=== PATIENT | female | born 1980 | race Hispanic/Latino ===

== ENCOUNTER 2019-10-14 18:42 | Emergency (ER) | payer BC ==
[2019-10-14] MEDS ORDERED: IBUPROFEN 200 MG TAB PO ONE (20:18)
[2019-10-14] MEDS ORDERED: IBUPROFEN 400 MG TAB ONE (20:18)
--- NOTE | 2019-10-15 00:45 | EDPHYS ---
Physician Documentation [facility] Name: Maur Khoury Age: 39 yrs Sex: Female : 1980 Arrival Date: 10/14/2019 Time: 18:43 Bed 25 Private MD: ED Physician Jp Mtz HPI: 10/14 20:29 This 39 yrs old Female presents to ER via Ambulatory with complaints of Flu snw Symptoms. 20:29 Onset: The symptoms/episode began/occurred suddenly, 3 day(s) ago, and became snw persistent. Associated signs and symptoms: Pertinent positives: congestion, cough, fever, headache, nasal discharge, shortness of breath, sore throat. The patient has not experienced similar symptoms in the past. The patient has not recently seen a physician. 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 - Coronavirus screen:: The patient has NOT traveled to [place] in the past 14 days. - Social history:: Smoking status: Patient uses street drugs, marijuana, Patient/guardian denies using. - Ebola Screening: : Patient negative for fever greater than or equal to 101.5 degrees Fahrenheit, and additional compatible Ebola Virus Disease symptoms Patient denies exposure to infectious person. ROS: 20:20 Eyes: Negative for injury, pain, redness, and discharge. snw 20:20 Neck: Negative for injury, pain, and swelling, Cardiovascular: Negative for chest pain, palpitations, and edema. 20:20 Abdomen/GI: Negative for abdominal pain, nausea, vomiting, diarrhea, and constipation, Back: Negative for injury and pain, : Negative for injury, bleeding, discharge, and swelling, MS/Extremity: Negative for injury and deformity, Skin: Negative for injury, rash, and discoloration, Neuro: Negative for headache, weakness, numbness, tingling, and seizure. 20:20 Constitutional: Positive for body aches, chills, fatigue, fever, malaise, poor PO intake. 20:20 ENT: Positive for sinus congestion, sore throat. 20:20 Respiratory: Positive for cough, with no reported sputum. Exam: 20:18 Head/Face: Normocephalic, atraumatic. Eyes: Pupils equal round and reactive to light, snw extra-ocular motions intact. Lids and lashes normal. Conjunctiva and sclera are non-icteric and not injected. Cornea within normal limits. Periorbital areas with no swelling, redness, or edema. ENT: Nares patent. No nasal discharge, no septal abnormalities noted. Tympanic membranes are normal and external auditory canals are clear. Oropharynx with no redness, swelling, or masses, exudates, or evidence of obstruction, uvula midline. Mucous membranes moist. Neck: Trachea midline, no thyromegaly or masses palpated, and no cervical lymphadenopathy. Supple, full range of motion without nuchal rigidity, or vertebral point tenderness. No Meningismus. Chest/axilla: Normal chest wall appearance and motion. Nontender with no deformity. No lesions are appreciated. 20:18 Abdomen/GI: Soft, non-tender, with normal bowel sounds. No distension or tympany. No guarding or rebound. No evidence of tenderness throughout. Back: No spinal tenderness. No costovertebral tenderness. Full range of motion. Skin: Warm, dry with normal turgor. Normal color with no rashes, no lesions, and no evidence of cellulitis. MS/ Extremity: Pulses equal, no cyanosis. Neurovascular intact. Full, normal range of motion. Neuro: Awake and alert, GCS 15, oriented to person, place, time, and situation. Cranial nerves II-XII grossly intact. Motor strength 5/5 in all extremities. Sensory grossly intact. Cerebellar exam normal. Normal gait. Psych: Awake, alert, with orientation to person, place and time. Behavior, mood, and affect are within normal limits. 20:18 Constitutional: The patient appears alert, awake, febrile, uncomfortable. 20:18 Cardiovascular: Rate: tachycardic, Rhythm: regular. 20:18 Respiratory: the patient does not display signs of respiratory distress, Respirations: shallow respirations, Breath sounds: bronchial sounds, that are moderate, bronchitic cough. Vital Signs: 19:15 BP 150 / 99; Pulse 112; Resp 20; Temp 100; Pulse Ox 99% ; Weight 78.02 kg; Height 4 ft. wh 11 in. (149.86 cm); 20:30 BP 144 / 68; Pulse 103; Resp 18; Temp 100.4; Pulse Ox 99% on R/A; wh 19:15 Body Mass Index 34.74 (78.02 kg, 149.86 cm) MDM: 19:08 Patient medically screened. snw 20:29 Data reviewed: vital signs, nurses notes. Data interpreted: Pulse oximetry: on room air snw is 99 %. Interpretation: normal. Counseling: I had a detailed discussion with the patient and/or guardian regarding: the historical points, exam findings, and any diagnostic results supporting the discharge/admit diagnosis, lab results, the need for outpatient follow up, to return to the emergency department if symptoms worsen or persist or if there are any questions or concerns that arise at home. Special discussion: I have referred the patient to see his PCP for further evaluation of high blood pressure. Based on the history and exam findings, there is no indication for further emergent testing or inpatient evaluation. I discussed with the patient/guardian the need to see the primary care provider for further evaluation of the symptoms. 10/14 19:28 Order name: Influenza Screen (A [facility] 10/14 19:28 Order name: Group A Streptococcus Rapid Sc [facility] 10/14 20:17 Order name: Urine Dipstick--Ancillary (enter results) [facility] 10/14 20:07 Order name: Urine Dipstick-Ancillary (obtain specimen); Complete Time: 20:12 snw 10/14 20:17 Order name: Urine --Ancillary (enter results) 2 Administered Medications: 20:13 Drug: Motrin 600 mg Route: PO; 20:48 Follow up: Response: No adverse reaction; Temperature is unchanged Disposition: 10/14/19 20:27 Discharged to Home. Impression: Influenza due to identified novel influenza A virus. - Condition is Stable. - Discharge Instructions: Fever, Adult, Hypertension, Influenza, Adult, Cough, Adult, Rehydration, Adult. - Prescriptions for Tylenol- Codeine #3 300-30 mg Oral Tablet - take 1 tablet by ORAL route every 6 hours As needed; 6 tablet. Tessalon Perles 100 mg Oral Capsule - take 1 capsule by ORAL route every 8 hours As needed; 15 capsule. promethazine 25 mg Oral Tablet - take 1 tablet by ORAL route every 6 hours As needed; 20 tablet. - Work release form, Medication Reconciliation Form, Thank You Letter, Antibiotic Education, Prescription Opioid Use form. - Follow up: Emergency Department; When: As needed; Reason: Worsening of condition. Follow up: Private Physician; When: 2 - 3 days; Reason: Recheck today's complaints, Continuance of care, Re-evaluation by your physician. - Problem is new. - Symptoms are unchanged. Addendum: 10/16/2019 19:05 Co-signature as Attending Physician, Jp Mtz MD. r n Signatures: Dispatcher [employer] EDMS Luana Butler, MANAGER BAR-C MANAGER BAR-Csnw Jp Mtz MD MD rn [facility]st[facility] Corrections: (The following items were deleted from the chart) 10/14 20:49 20:27 10/14/2019 20:27 Discharged to Home. Impression: Influenza due to identified novel influenza A virus. Condition is Stable. Forms are Medication Reconciliation Form, Thank You Letter, Antibiotic Education, Prescription Opioid Use. Follow up: Emergency Department; When: As needed; Reason: Worsening of condition. Follow up: Private Physician; When: 2 - 3 days; Reason: Recheck today's complaints, Continuance of care, Re-evaluation by your physician. Problem is new. Symptoms are unchanged. snw
--- NOTE | 2019-10-15 00:45 | ER ---
Nurse's Notes [facility] Name: Maru Khoury Age: 39 yrs Sex: Female : 1980 Arrival Date: 10/14/2019 Time: 18:43 Bed 25 Private MD: Diagnosis: Influenza due to identified novel influenza A virus Presentation: 10/14 19:12 Presenting complaint: Patient states: fever since Tuesday accompanied with cough and wh body aches. Transition of care: patient was not received from another setting of care. Onset of symptoms was October 14, 2019. Risk Assessment: Do you want to hurt yourself or someone else? Patient reports no desire to harm self or others. Initial Sepsis Screen: Does the patient meet any 2 criteria? HR > 90 bpm. Does the patient have a suspected source of infection? Yes: Other: fever. Care prior to arrival: None. 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 - Coronavirus screen:: The patient has NOT traveled to [place] in the past 14 days. - Social history:: Smoking status: Patient uses street drugs, marijuana, Patient/guardian denies using. - Ebola Screening: : Patient negative for fever greater than or equal to 101.5 degrees Fahrenheit, and additional compatible Ebola Virus Disease symptoms Patient denies exposure to infectious person. Screenin:15 Abuse screen: Denies threats or abuse. Denies injuries from another. Nutritional screening: No deficits noted. Tuberculosis screening: No symptoms or risk factors identified. Fall Risk None identified. Assessment: 19:15 General: Appears in no apparent distress. Behavior is calm, cooperative, appropriate for age. Pain: Complains of pain in sore throat and body aches. Neuro: Level of Consciousness is awake, alert, obeys commands, Oriented to person, place, time, situation, Appropriate for age. Cardiovascular: Heart tones S1 S2. Respiratory: Reports cough that is congestion Airway is patent Respiratory effort is even, unlabored, Respiratory pattern is regular, symmetrical, Breath sounds are clear bilaterally. GI: Abdomen is flat, non-distended. : No signs and/or symptoms were reported regarding the genitourinary system. EENT: Throat is pink. Derm: Skin is intact, is healthy with good turgor, Skin is pink, warm \T\ dry. normal. Musculoskeletal: Circulation, motion, and sensation intact. 20:30 Reassessment: Patient appears in no apparent distress at this time. No changes from previously documented assessment. Patient and/or family updated on plan of care and expected duration. Pain level reassessed. Patient is alert, oriented x 3, equal unlabored respirations, skin warm/dry/pink. Vital Signs: 19:15 BP 150 / 99; Pulse 112; Resp 20; Temp 100; Pulse Ox 99% ; Weight 78.02 kg; Height 4 ft. wh 11 in. (149.86 cm); 20:30 BP 144 / 68; Pulse 103; Resp 18; Temp 100.4; Pulse Ox 99% on R/A; wh 19:15 Body Mass Index 34.74 (78.02 kg, 149.86 cm) ED Course: 18:43 Patient arrived in ED. as 18:54 Luana Butler FNP-C is [facility]. snw 18:54 Jp Mtz MD is Attending Physician. snw 19:08 Sofia Gallagher is Primary Nurse. 19:13 Triage completed. wh 19:15 Arm band placed on right wrist. wh 19:15 Patient has correct armband on for positive identification. Bed in low position. Call light in reach. Side rails up X 1. Pulse ox on. NIBP on. 19:23 Flu and/or RSV swab sent to lab. Strep swab sent to lab. lt1 20:46 No provider procedures requiring assistance completed. Patient did not have IV access during this emergency room visit. Administered Medications: 20:13 Drug: Motrin 600 mg Route: PO; 20:48 Follow up: Response: No adverse reaction; Temperature is unchanged Outcome: 20:27 Discharge ordered by . snw 20:46 Discharged to home ambulatory. 20:46 Condition: stable 20:46 Discharge instructions given to patient, Instructed on discharge instructions, follow up and referral plans. no drinking with medication, no driving heavy equipment, medication usage, POC Demonstrated understanding of instructions, follow-up care, medications, POC Prescriptions given X 3. 20:49 Patient left the ED. Signatures: Luana Butler, JACK-Angel SUPERVISOR WORD PROCESSING-Csnw Georgette Acevedo, Sofia Snatiago, Aimee lt1 Corrections: (The following items were deleted from the chart) 19:16 19:12 Initial Sepsis Screen: Does the patient meet any 2 criteria? No. Patient's initial sepsis screen is negative. Does the patient have a suspected source of infection? Yes: Other: fever
[2019-10-15 02:00] VITALS: O2SAT 99
[2019-10-15 02:01] VITALS: BP 144/68; TEMP 100.4
[2019-10-15 04:01] LABS: Urine Blood 3+ (NEG); Urine Glucose NEGATIVE (NEG); Urine Protein TRACE (NEG); Urine Specific Gravity 1.025 (1.005-1.030)
== END 2019-10-14 20:49 | disposition home or self-care (01) ==
LOC: ER 18:42
DX: J10.1 Influenza due to other identified influenza virus with other respiratory manifestations (principal); I10 Essential (primary) hypertension
CPT/HCPCS: 81003; 81025; 87070; 87081; 87804; 99284

== ENCOUNTER 2019-11-19 00:41 | Emergency (ER) | payer BC ==
[2019-11-19 01:20] LABS: Absolute Lymphocytes (CBC) 3.3 K/uL (0.7-4.9); Basophils % 0.8 % (0-1.3); Hematocrit 39.8 % (36.0-45.0); Lymphocytes % 31.1 % (15.3-44.8); MPV 8.2 fL (7.6-11.3); RBC Red Blood Cell Count 4.37 M/uL (3.86-4.86)
[2019-11-19 02:19] LABS: Urine Blood NEGATIVE (NEG); Urine Glucose NEGATIVE (NEG); Urine Protein NEGATIVE (NEG); Urine Specific Gravity 1.025 (1.005-1.030)
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
[2019-11-19] MEDS ORDERED: IBUPROFEN 400 MG TAB ONE (03:35)
[2019-11-19] MEDS ORDERED: IBUPROFEN 200 MG TAB PO ONE (03:35)
[2019-11-19 04:02] VITALS: O2SAT 100
[2019-11-19 04:09] VITALS: BP 150/88; TEMP 98.5
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
== END 2019-11-19 03:47 | disposition home or self-care (01) ==
LOC: ER 00:41
DX: S16.1XXA Strain of muscle, fascia and tendon at neck level, initial encounter (principal); S20.229A Contusion of unspecified back wall of thorax, initial encounter; V49.40XA Driver injured in collision with unspecified motor vehicles in traffic accident, initial encounter; I10 Essential (primary) hypertension
CPT/HCPCS: 85025; 80048; 36415; 81025; 81003; 70450; 72125; 71260; 74177; 73590; 99284; Q9967

== ENCOUNTER 2024-04-12 09:23 | Emergency (ER) | payer BC ==
--- OUTSIDE RECORDS SUMMARY | 2024-04-12 09:27 | XMS REPORT | Continuity of Care Document ---
Author Name Unknown Address [address] [facility] [address] [place] [address] [facility] thconnect Address [address] [facility]. [address] [place] [address] Support Name Relationship Address Phone NO, CONTACT OT [address] [place] [address] NO, CONTACT OT [address] [place], [place] [address] [place], [place] [address] DENIZ MICHELLE SPOU [address] [place], [place] [id number] DENIZ MICHELLE Unknown Unavailable Care Team Providers Care Orthotic Finish Grinding Technician Name Role Phone QUENTIN SANTOS Primary Care Physicia n Unavailable Lidia Trevizo Attending Clinician UnavailMICKEY Montanez Attending Clinician Unavailable SINCERE MCCLENDON Attending Clinician Unavailable Todd Meyers Attending Clinician Unavailable KADEEM PIPER Attending Clinician Unavailable Therapy, Adc Covid Infusion Attending Clinician Unavailable Kadeem Piper MD Attending Clinician [phone] Juarez Lares DO Attending Clinician [phone] HAILEY LAIRD Attending Clinician Unavailable Lidia Trevizo Admitting Clinician UnavailTodd Wilson Admitting Clinician Unavailable Physician, No Primary or Family Admitting Clinic gerson Unavailable Payers Payer Name Policy Type Policy Number Effective Date Expirati on Date Source [facility] [id number] 2020 00:00:00 Problems Condition Name Condition Details Condition Category Status Onset Date Resolution Date Last Treatment Date Treating Clinician Comments Source No known active problems No known active problems Disease [facility] Allergies, Adverse Reactions, Alerts Allergy Name Allergy Type Status Severity Reaction(s) Onset Date Inactive Date Treating Clinician Comments Source Ibuprofe n Propensi ty to adverse reaction s Active Other - See comments 04-07 00:00: 00 Raises blood pressure [facility] Lisinopr il Propensi ty to adverse reaction s Active Cough 04-07 00:00: 00 [facility] IBUPROFE N DRUG INGREDI Active Other-Cmnt 04-07 00:00: 00 [facility] LISINOPR IL DRUG INGREDI Active COUGH 04-07 00:00: 00 [facility] ibuprofe n DA Active U ELEVATES BLOOD PRESSURE 04-01 00:00: 00 [facility] No Known Allergie s DA Active U 04-01 00:00: 00 [facility] No Known Allergie s DA Active U 04-01 00:00: 00 [facility] ibuprofe n DA Active U 04-01 00:00: 00 [facility] NO KNOWN ALLERGIE S Drug Class Active [facility] Social History Social Habit Start Date Stop Date Quantity Comments Source Exposure to SARS-CoV-2 (event) Yes [facility] Sex Assigned At 1980 00:00:00 1980 00:00:00 [facility] Smoking Status Start Date Stop Date Source Unknown if ever smoked [facility] Medications Ordered Medication Name Filled Medication Name Start Date Stop Date Current Medication? Ordering Clinician Indication Dosage Frequency Signature (SIG) Comments Components Source casirivimab -imdevimab 1200 mg in 60 mL NS MINI-BAG 04-09 21:30: 00 04-09 21:47 :00 No [id number] 1200mg [facility] casirivimab -imdevimab 1200 mg in 60 mL NS MINI-BAG 04-09 21:30: 00 04-09 21:47 :00 No [id number] 1200mg 1,200 mg, IV Infusion, ONCE, Administer over 20 Minutes, [facility] 04/09/21 at 1630, For 1 dose
Ad learning consultant as an IV infusion via pump or gravity through an intravenou s line containing a sterile, in-line or add-on 0.2-micron polyethers ulfone (PES) filter. Stable 36 hours refrigerat ed; 4 hours at room temperatur e.
[facility] casirivimab -imdevimab (REGEN-COV (EUA)) 1,200 mg in NaCl 0.9% (NS) 60 mL IV infusion 04-09 21:15: 00 04-09 20:22 :28 No [id number] 1200mg [facility] iopamidol (ISOVUE 370-500 mL) injection 100 mL 04-07 20:09: 00 04-07 20:10 :00 No [id number] 100mL 100 mL, Intravenou s, ONCE, 1 dose, Tue04/07/21 at 1530, Routine [facility] chlorphenir amine 4 mg tablet 04-07 00:00: 00 Yes [id number] 4mg Take 1 tablet by mouth every 6 (six) hours as needed for Allergies or Runny nose. [facility] calcium/mag nesium/zinc (CALCIUM-MA GNESUIUM-ZI NC) 333-133-5 mg Tab 04-07 00:00: 00 Yes [id number] 1{each} Take 1 Each by mouth daily. [facility] benzonatate 100 mg capsule 04-07 00:00: 00 Yes [id number] 100mg Take 1 capsule by mouth 3 (three) times daily as needed for Cough. [facility] ondansetron 4 mg disintegrat ing tablet 04-07 00:00: 00 Yes [id number] 4mg Take 1 tablet by mouth every 8 (eight) hours as needed for Nausea and Vomiting (N/V). [facility] vitamin D3-folic acid 125 mcg (5,000 unit)-1 mg Tab 04-07 00:00: 00 05-08 04:59 :00 No [id number] 1{tbl} Take 1 tablet by mouth daily for 30 days. [facility] Vital Signs Vital Name Observation Time Observation Value Comments S janna Systolic blood pressure 2021-04-09 22:32:00 143 mm[Hg] [facility] Diastolic blood pressure 2021-04-09 22:32:00 86 mm[Hg] [facility] Heart rate 2021-04-09 22:32:00 107 /min [facility] Body temperature 2021-04-09 22:32:00 36.72 Barbra [facility] Oxygen saturation in Arterial blood by Pulse oximetry 2021-04-09 22:32:00 96 /min [facility] Respiratory rate 2021-04-09 21:30:00 20 /min [facility] Body height 2021-04-09 20:09:00 147.3 cm [facility] Body weight 2021-04-09 20:09:00 78.472 kg [facility] BMI 2021-04-09 20:09:00 36.16 kg/m2 [facility] Systolic blood pressure 2021-04-07 21:00:00 138 mm[Hg] [facility] Diastolic blood pressure 2021-04-07 21:00:00 102 mm[Hg] [facility] Heart rate 2021-04-07 21:00:00 116 /min [facility] Respiratory rate 2021-04-07 21:00:00 23 /min [facility] Oxygen saturation in Arterial blood by Pulse oximetry 2021-04-07 21:00:00 100 /min [facility] Body temperature 2021-04-07 19:05:00 37.94 Barbra [facility] Body height 2021-04-07 19:05:00 147.3 cm [facility] Body weight 2021-04-07 19:05:00 78.926 kg [facility] BMI 2021-04-07 19:05:00 36.37 kg/m2 [facility] Procedures Procedure Date / Time Performed Performing Clinicia n Source [id number] 2021-05-21 00:00:00 NIDHI [facility] [id number] 2021-05-21 00:00:00 MARRO.02 [facility] [id number] 2021-05-21 00:00:00 MARRO.[address] [facility] [address] CHEST PULMONARY ANGIOGRAM 2021-04-07 20:17:19 [facility] 2021-04-07 20:05:00 Juarez Lares [facility] TROPONIN I 2021-04-07 20:02:[facility] COMP. METABOLIC PANEL ([id number]) 2021-04-07 20:02:00 Singer [facility] CBC WITH DIFF 2021-04-07 20:02:00 Singer [facility] N-TERMINAL PRO-BNP 2021-04-07 20:02:00 Singer [facility] NOTICE OF PRIVACY PRACTICES 2021-04-07 18:41:00 Doctor Unassigned, [place] [facility] CONSENT/REFUSAL FOR DIAGNOSIS AND TREATMENT 2021-04-07 18:40:33 Doctor Unassigned, [place] [facility] Encounters Start Date/Time End Date/Time Encounter Type Admission Type Attending [facility] Care Department Encounter ID Source 2023-11-03 12:00:00 2023-11-03 12:00:00 Outpatient Lidia Saunders [facility] [id number] [facility] 2022-10-21 12:00:00 2022-10-21 12:00:00 Outpatient Lidia Saunders [facility] [id number] [facility] 2022-05-05 14:40:00 2022-05-05 14:40:00 Outpatient MICKEY WATKINS [facility] [id number] [facility] 2022-05-01 16:40:00 2022-05-01 16:40:00 Outpatient SINCERE NEFF [facility] [id number] [facility] 2021-09-11 15:33:00 2021-09-11 15:33:00 Outpatient Todd Meyers [facility] [id number] [facility] 2021-05-21 14:45:00 2021-05-22 11:54:00 Inpatient Todd Glover [facility] DAYS [id number] [facility] 2021-04-28 00:00:00 2021-04-28 00:00:00 Outpatient [facility] PENFHETJOJ TYTI- [facility] 2021-04-09 15:00:00 2021-04-09 15:00:00 Outpatient KADEEM GARCIA [facility] [id number] [facility] 2021-04-09 13:03:47 2021-04-09 14:03:47 Nurse Visit Therapy, Adc Covid Kadeem Li A [facility] [id number] [facility] 2021-04-07 14:08:00 2021-04-07 16:44:00 Emergency Juarez Lares [facility] [id number] [facility] 2021-04-07 13:39:00 2021-04-07 13:39:00 Emergency X [facility] ERT [id number] [facility] 2021-04-01 08:00:00 2021-04-01 08:00:00 Outpatient Todd Glover [facility] DAYS [id number] [facility] 2021-03-31 00:00:00 2021-03-31 00:00:00 Outpatient HAILEY HUNTLEY [facility] [id number] [facility] Results Test Description Test Time Test Comments Results Result Co mments Source [id number] 20:47:00* Test Item Value Reference Range Interpretation Comme nts GLUBED (test code = GLUBED) 149 MG/DL 70-105 H UR HCG [id number] 09:05:00* Test Item Value Reference Range Interpretation Comme nts UR HCG QUAL (test code = HCGQLU) NEGATIVE NEGATIVE CT CHEST PULMONARY [id number] 21:15:341. No evidence of acute or chronic pulmonary embolism through the level ofthe subsegmental branches. 2. Multiple bilateral small areas of groundglass and consolidativeopacities consistent with the known diagnosis of COVID 19 pneumonia. Preliminary Report Dictated by Resident: Jay Valdez ?MD. Latha, have reviewed this study and agree with theabove report.PROCEDURE: CT CHEST WITH CONTRAST- CHEST PE PROTOCOL CLINICAL INDICATION: PE suspected, high pretest prob + covid ? COMPARISON: None TECHNIQUE: Volumetric helical CT angiogram was performed of the chest (lungapices to bases) with IV contrast. Images were reconstructed at 1.25 mmslice thickness. Corresponding axial, sagittal and coronal MIP images wereperformed. Axial MIPs and coronal and sagittal MPR images were generatedand reviewed.. FINDINGS: DEVICES: None HEART AND GREAT VESSELS: The opacification of the pulmonary vasculature isappropriate. No filling defects are seen through the level of the segmentalpulmonary arteries. The pulmonary trunk is normal in caliber. The thoracic aorta is normal in caliber. The heart is normal in size. No pericardial abnormalities are identified.The RV to LV is normal. MEDIASTINUM AND LOWER NECK: No central airway lesions are detected. Theesophagus is within normal limits. The included thyroid gland appearsnormal. LYMPH NODES: Mildly enlarged prevascular lymph node measuring 1 cm in shortaxis, likely reactive. Additional small lymph nodes in both sides of themediastinum a nd hilar regions. LUNGS AND PLEURA: Multiple bilateral mainly peripheral small areas ofgroundglass and consolidative opacities are seen. No suspicious lungmasses. No pleural abnormality detected. VISUALIZED UPPER ABDOMEN: The included solid organs and hollow viscusappear within normal limits. OSSEOUS STRUCTURES AND SOFT TISSUES: Thoracic dextrocurvature noted. Nofocal osseous lesions are detected. The soft tissues appear normal. [facility], Radiant Results Inft User - 04/07/2021 4:16 PM CDTFormattingof this note might be different from the original.PROCEDURE: CT CHEST WITH CONTRAST- CHEST PE PROTOCOLCLINICAL INDICATION: PE suspected, high pretest prob + covid COMPARISON: NoneTECHNIQUE: Volumetric helical CT angiogram was performed of the chest (lungapices to bases) with IV contrast. Images were reconstructed at 1.25 mmslice thickness. Corresponding axial, sagittal and coronal MIP images wereperformed. Axial MIPs and coronal and sagittal MPR images were generatedand reviewed..FINDINGS:DEVICE S: None HEART AND GREAT VESSELS: The opacification of the pulmonary vasculature isappropriate. No filling defects are seen through the level of the segmentalpulmonary arteries. The pulmonary trunk isnormal in caliber.The thoracic aorta is normal in caliber.The heart is normal in size. No pericardial abnormalities are identified.The RV to LV is normal. MEDIASTINUM AND LOWER NECK: No central airway lesions are detected. Theesophagus is within normal limits. The included thyroid gland appearsnormal.LYMPH NODES: Mildly enlarged prevascular lymph node measuring 1 cm in shortaxis, likely reactive.Additional small lymph nodes in both sides of themediastinum and hilar regions. LUNGS AND PLEURA: Multiple bilateral mainly peripheral small areas ofgroundglass and consolidative opacities are seen. No suspicious lungmasses. No pleural abnormality detected.VISUALIZED UPPER ABDOMEN: The included solid organs and hollow viscusappear within normal limits.OSSEOUS STRUCTURES AND SOFT TISSUES: Thoracicdextrocurvature noted. Nofocal osseous lesions are detected. The soft tissues appear normal.IMPRESSION1. No evidence of acute or chronic pulmonary embolism through the level ofthe subsegmental branches.2. Multiple bilateral small areas of groundglass and consolidativeopacities consistent with the known diagnosis of COVID 19 pneumonia.Preliminary Report Dictated by Resident: Jay Del Rio MD., have reviewed this study and agree with theabove report.[facility] [id number] 20:46:24 * Test Item Value Reference Range Interpretation Comme nts APPEARANCE (test code = 1731460484) Hazy Clear A COLOR (test code = 4231370035) Renea Yellow A PH (test code = 7754317890) 4.8-8.0 SP GRAVITY (test code = 4321636675) 1.003-1.030 GLU U QUAL (test code = 3759050666) Normal Normal BLOOD (test code = 0083137127) 1+ Negative A KETONES (test code = 0408273996) 80 mg/dL Negative A PROTEIN (test code = 2887-8) 100 mg/dL Negative A UROBILIN (test code = 8534703925) 4.0 mg/dL Normal A BILIRUBIN (test code = 3025240357) Negative Negative NITRITE (test code = 9662533341) Negative Negative LEUK SEAN (test code = 5642841546) Negative Negative RBC/HPF (test code = 4538105883) See_Comment [Automated [employer]] The system which generated this result transmitted reference range: 0 - 3 HPF. The reference range was not used to interpret this result as normal/abnormal. WBC/HPF (test code = 0337778535) See_Comment [Automated messa ge] The system which generated this result transmitted reference range: 0 - 5 HPF. The reference range was not used to interpret this result as normal/abnormal. BACTERIA (test code = 1996758608) Negative Negative MUCOUS (test code = 9081998988) Moderate Negative LPF A SQ EPITH (test code = 3591831023) HPF Lab Interpretation (test code = 00294-3) [id number] 20:41:50* Test Item Value Reference Range Interpretation Comments TROPONIN I (test code = 8636064708) 0.002 ng/mL See_Comment [Automated message] The system which generated this result transmitted reference range: <=0.034. The reference range was not used to interpret this result as normal/abnormal. JUANJO (test code = JUANJO) Reference (Normal) Range (defined by the 99th percentile reference limit): <= 0.034 ng/mL Note: Cardiac troponin begins to rise 3-4 hours after the onset of ischemia. Repeat in 4-6 hours if the sample was drawn within 3-4 hours of the onset of the symptom and found normal. Diagnosis of myocardial injury is made with acute changes in cTn concentrations with at least one serial sample above the 99th percentile upper reference limit (URL), taken together with the patient's clinical presentation. Biotin has been reported to cause a negative bias, interpret results relative to patient's use of biotin. Lab Interpretation (test code = 50697-4) Normal [facility]. METABOLIC PANEL (26126)2021-04-07 20:37:33* Test Item Value Reference Range Interpretation Comme nts NA (test code = 3279366729) 139 mmol/L 135-145 K (test code = 7767075467) 3.5 mmol/L 3.5-5.0 CL (test code = 8756941601) 104 mmol/L 98-108 CO2 TOTAL (test code = 2083690738) 23 mmol/L 23-31 AGAP (test code = 3617821199) 2-16 BUN (test code = 6006294952) 10 mg/dL 7-23 GLUCOSE (test code = 6840582532) 104 mg/dL 70-110 CREATININE (test code = 6624550326) 0.67 mg/dL 0.50-1.04 TOTAL BILI (test code = 9428620856) 0.4 mg/dL 0.1-1.1 CALCIUM (test code = 7013282408) 9.5 mg/dL 8.6-10.6 T PROTEIN (test code = 7871884148) 8.5 g/dL 6.3-8.2 H ALBUMIN (test code = 4206356759) 4.7 g/dL 3.5-5.0 ALK PHOS (test code = 9459648067) 72 U/L 34-122 ALTv (test code = 1742-6) 66 U/L 5-35 H AST(SGOT) (test code = 1364332213) 82 U/L 13-40 H eGFR (test code = 4658034953) mL/min/1.73m2 JUANJO (test code = JUANJO) Association of Glomerular Filtration Rate (GFR) and Staging of Kidney Disease* + --+ --+ ------+| GFR (mL/min/1.73 m2) ?| With Kidney Damage ?| ?Without Kidney Damage+ --------+ --------+ +| ?>90 ?| ?Stage one ?| ? Normal ?+ ---+ ---+ -------+| ?60-89 ?| ?Stage two ?| ? Decreased GFR ? + --+ --+ ------+| ?30-59 ?| ?Stage three ?| ? Stage three ? + --+ --+ ------+| ?15-29 ?| ?Stage four ? | ? Stage four ?+ ---+ ---+ -------+| ?<15 (or dialysis) ? ?| ?Stage five ? | ? Stage five ?+ ---+ ---+ -------+ *Each stage assumes the associated GFR level has been in effect for at least three months. ?Stages 1 to 5, with or without kidney disease, indicate chronic kidney disease. Notes: Determination of stages one and two (with eGFR >59mL/min/1.73 m2) requires estimation of kidney damage for at least three months as defined by structural or functional abnormalities of the kidney, manifested by either:Pathological abnormalities or Markers of kidney damage (including abnormalities in the composition of the blood or urine or abnormalities in imaging tests). Lab Interpretation (test code = 85268-9) [facility] [id number] 20:37:28* Test Item Value Reference Range Interpretation Comme nts NT-proBNP (test code = 0206506973) 25 pg/mL See_Comment [Automated message] The system which generated this result transmitted reference range: <=125. The reference range was not used to interpret this result as normal/abnormal. JUANJO (test code = JUANJO) Biotin has been reported to cause a negative bias, interpret results relative to patient's use of biotin. Lab Interpretation (test code = 24641-9) Normal [facility] [id number] 20:25:06* Test Item Value Reference Range Interpretation Comme nts WBC (test code = 6690-2) See_Comment [Automated [employer]] The system which generated this result transmitted reference range: 4.30 - 11.10 10*3/?L. The reference range was not used to interpret this result as normal/abnormal. RBC (test code = 789-8) See_Comment H [Automated [employer]] The system which generated this result transmitted reference range: 3.93 - 5.25 10*6/?L. The reference range was not used to interpret this result as normal/abnormal. HGB (test code = 718-7) 15.8 g/dL 11.6-15.0 H HCT (test code = 4544-3) 46.8 % 35.7-45.2 H MCV (test code = 787-2) 88.1 fL 80.6-95.5 MCH (test code = 785-6) 29.8 pg 25.9-32.8 MCHC (test code = 786-4) 33.8 g/dL 31.6-35.1 RDW-SD (test code = 30781-0) 40.9 fL 39.0-49.9 RDW-CV (test code = 788-0) 12.7 % 12.0-15.5 PLT (test code = 777-3) See_Comment [Automated messa ge] The system which generated this result transmitted reference range: 166 - 358 10*3/?L. The reference range was not used to interpret this result as normal/abnormal. MPV (test code = 92906-5) 10.0 fL 9.5-12.9 NRBC/100 WBC (test code = 2983530752) See_Comment [Automated [employer]] The system which generated this result transmitted reference range: 0.0 - 10.0 /100 WBCs. The reference range was not used to interpret this result as normal/abnormal. NRBC x10^3 (test code = 1914540142) <0.01 See_Comment [Automated messa ge] The system which generated this result transmitted reference range: 10*3/?L. The reference range was not used to interpret this result as normal/abnormal. GRAN MAT (NEUT) % (test code = 770-8) 73.2 % IMM GRAN % (test code = 5927887060) 0.20 % LYMPH % (test code = 736-9) 20.5 % MONO % (test code = 5905-5) 5.9 % EOS % (test code = 713-8) 0.0 % BASO % (test code = 706-2) 0.2 % GRAN MAT x10^3(ANC) (test code = 2962835171) 4.36 10*3/uL 1.88-7.09 IMM GRAN x10^3 (test code = 1913799157) <0.03 0.00-0.06 LYMPH x10^3 (test code = 731-0) 1.22 10*3/uL 1.32-3.29 L MONO x10^3 (test code = 742-7) 0.35 10*3/uL 0.33-0.92 EOS x10^3 (test code = 711-2) <0.03 0.03-0.39 L BASO x10^3 (test code = 704-7) <0.03 0.01-0.07 Lab Interpretation (test code = 41560-8) [facility] nCoV [id number] 14:43:00* Test Item Value Reference Range Interpretation Comme nts Coronavirus 2018 nCoV Bedside (test code = KSPDM43TFBZJ) Positive Negative A Critical Value reported toFirst Name: DIANE Last Name: R. (DR. MEYERS OFFICE)RESULTS READ BACK AND VERIFIEDby [id number], on 04/01/21, @ 1435. UR HCG [id number] 14:17:00* Test Item Value Reference Range Interpretation Comme nts UR HCG QUAL (test code = HCGQLU) NEGATIVE NEGATIVE Notes Date/Time Note Provider Source 2021-04-01 14:02:00 [id number] [address] PATIENT NAME: SYD MICHELLE ADMIT DATE: ACCOUNT NO: [id number] ROOM NO: AGE: 40 REPORT TYPE: eELECTROCARDIOGRAM SEX: F ADMITTING PHYSICIAN: Todd Meyers MD ATTENDING PHYSICIAN: Todd Meyers MD Order: [id number] Test Reason : SDS Test Date/Time Stamp: TueApr 01 2021 14:02:50 Blood Pressure : / mmHG Vent. Rate : 065 BPM Atrial Rate : 065 BPM P-R Int : 156 ms QRS Dur : 090 ms QT Int : 422 ms P-R-T Axes : 003 -05 029 degrees QTc Int : 438 ms Normal sinus rhythm Normal ECG No previous ECGs available Confirmed by DUNIA SHIELDS, EDELMIRA Laurent ([id number]) on 04/08/2021 8:25:42 AM Referred By: Todd Meyers Confirmed by:EDELMIRA STEVENS MD at 0825 PATIENT NAME: SYD MICHELLE [facility]"
[2024-04-12] MEDS ORDERED: ONDANSETRON 4 MG/2 ML VIAL ONE (10:00)
[2024-04-12] MEDS ORDERED: NA CHLORIDE 0.9% 1,000 ML ONE (10:01)
[2024-04-12] MEDS ORDERED: MORPHINE 4 MG/ML SYR ONE (10:01)
[2024-04-12 10:20] LABS: Absolute Lymphocytes (CBC) 0.9 K/uL (0.7-4.9); Absolute Monocytes 0.3 K/uL (0.1-1.3); Absolute Neutrophil 5.7 K/uL (1.8-8.0); Basophils % 0.6 % (0-1.3); Eosinophils % 0.3 % (0-4.4); Hematocrit 39.3 % (36.0-45.0); Hemoglobin 12.4 g/dL (12.0-15.0); Lymphocytes % 13.4 % (15.3-44.8); MCH 28.5 pg (27.0-35.0); MCHC 31.6 g/dL (32.0-36.0); MCV 90.2 fL (80-100); MPV 8.4 fL (7.6-11.3); Monocytes % 4.4 % (3.3-12.3); Neutrophils % 81.3 % (41.7-73.7); Platelets 324 thou/uL (152-406); RBC Red Blood Cell Count 4.35 M/uL (3.86-4.86); Red Cell Distribution Width 15.2 % (12.1-15.2)
[2024-04-12 10:23] LABS: Specific Gravity 1.029 (1.005-1.030); Sqamous Epithelial None Seen /HPF (None Seen); Urine Bacteria None Seen /HPF (<20); Urine Bilirubin NEGATIVE (Negative); Urine Blood 3+ (OVER) (Negative); Urine Clarity Extremely Turbid (Clear); Urine Color Dark-Brown (Yellow); Urine Culture Reflex Order NOT NEEDED; Urine Glucose NEGATIVE (Negative); Urine Ketones NEGATIVE (Negative); Urine Microscopic Reflex YN ORDER UMIC; Urine Mucus 4+ /HPF (None Seen); Urine Nitrite NEGATIVE (Negative); Urine Protein 2+ (Negative); Urine RBC >50 /HPF (None Seen); Urine Urobilinogen Normal (Normal); Urine WBC None Seen /HPF (<5); Urine pH 5.5 (5.0-7.0)
[2024-04-12 10:24] LABS: Specific Gravity 1.029 (1.005-1.030)
[2024-04-12 10:35] LABS: Albumin 3.6 g/dL (3.4-5.0); Albumin/Globulin Ratio 1.1 (1.1-1.8); Anion Gap 7.2 mEq/L (5.0-15.0); Bilirubin Total 0.4 mg/dL (0.2-1.0); Globulin 3.3 g/dL (2.3-3.5); Potassium 4.2 mEq/L (3.5-5.1); Protein, Total 6.9 g/dL (6.4-8.2)
--- NOTE | 2024-04-12 11:47 | RAD REPORT ---
EXAM DESCRIPTION: CT - Abdomen Pelvis W Contrast - 04/12/2024 10:43 am CLINICAL HISTORY: Abdominal pain COMPARISON: none. TECHNIQUE: Computed axial tomography of the abdomen pelvis was obtained. 100 cc Isovue-300 was admin istered intravenously. Oral contrast was not requested which limits evaluation of bowel and appendix All CT scans are performed using dose optimization technique as appropriate and may include automated exposure control or mA/KV adjustment according to patient size. FINDINGS: Prominent scoliosis. Cholecystectomy. The liver, spleen, pancreas, adrenal and kidneys appear unremarkable. Postsurgical changes involve stomach. 2 centimeter right ovarian cyst without significant free fluid. No followup imaging recommended Cervical canal measures 17 millimeters. Vaginal tampon present IMPRESSION: A 2 centimeter right ovarian cyst without significant free fluid Prominence of the cervical canal may be blood or mass. Endovaginal sonogram would be helpful for furt her evaluation
--- NOTE | 2024-04-12 11:58 | ER ---
Nurse's Notes [facility] Name: Maru Khoury Age: 43 yrs Sex: Female : 1980 Arrival Date: 04/12/2024 Time: 09:23 Bed 19 Private MD: Diagnosis: Other ovarian cysts Presentation: 04/12 09:47 Chief complaint: Patient states: lower abd pain since this morning , also vomited and iw feels dizzy and sweaty, also had diarrhea. Coronavirus screen: Client presents with at least one sign or symptom that may indicate coronavirus-19. Ebola Screen: No symptoms or risks identified at this time. Initial Sepsis Screen: Does the patient meet any 2 criteria? No. Patient's initial sepsis screen is negative. Does the patient have a suspected source of infection? No. Patient's initial sepsis screen is negative. Risk Assessment: Do you want to hurt yourself or someone else? Patient reports no desire to harm self or others. Onset of symptoms was April 12, 2024. 09:47 Method Of Arrival: Ambulatory iw 09:47 Acuity: SB 3 iw Triage Assessment: 09:20 General: Appears in no apparent distress. uncomfortable, Behavior is calm, cooperative, ar6 appropriate for age. Pain: Complains of pain in abdomen Pain currently is 10 out of 10 on a pain scale. Quality of pain is described as pressure, sharp, Pain began suddenly. EENT: Oral mucosa is moist. Neuro: Level of Consciousness is awake, alert, obeys commands, Oriented to person, place, time, situation. Cardiovascular: Reports None Denies chest pain. Respiratory: Airway is patent. GI: Reports lower abdominal pain, diarrhea, nausea, vomiting. : Urine is blood tinged. Derm: Skin is intact, is healthy with good turgor, Skin is dry, Skin is pink, warm \T\ dry. Derm: Skin Skin is Skin is pink, warm \T\ dry. 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 - Infectious Disease History:: Denies. - Social history:: Smoking status: Patient denies any tobacco usage or history of. - Family history:: not pertinent. Screenin:10 [facility] ED Fall Risk Assessment (Adult) History of falling in the last 3 months, ar6 including since admission No falls in past 3 months (0 pts) Confusion or Disorientation No (0 pts) Intoxicated or Sedated No (0 pts) Impaired Gait No (0 pts) Mobility Assist Device Used No (0 pt) Altered Elimination No (0 pt) Score/Fall Risk Level 0 - 2 = Low Risk Oriented to surroundings, Maintained a safe environment, Educated pt \T\ family on fall prevention, incl call for assistance when getting out of bed, Assessed \T\ reinforced patient's understanding of fall precautions, Hourly rounding (assess needs \T\ fall precautionary measures) done, Used gait belt as appropriate. Abuse screen: Denies threats or abuse. Denies injuries from another. Nutritional screening: No deficits noted. Tuberculosis screening: No symptoms or risk factors identified. Assessment: 10:10 General: Appears in no apparent distress. uncomfortable, Behavior is calm, cooperative, ar6 appropriate for age. Pain: Complains of pain in abdomen Pain does not radiate. Pain currently is 10 out of 10 on a pain scale. Quality of pain is described as crampy, pressure, sharp, Pain began suddenly. Neuro: Level of Consciousness is awake, alert, obeys commands, Oriented to person, place, time, situation. Cardiovascular: Capillary refill < 3 seconds. Respiratory: Airway is patent. GI: Abdomen is round non-distended, Bowel sounds present X 4 quads. Abd is soft Abdomen is tender to palpation in suprapubic area, right lower quadrant and left lower quadrant. : Urine is blood tinged, pt. reports she is on menses. EENT: Oral mucosa is moist. Derm: Skin is intact, is healthy with good turgor, Skin is dry, Skin is pink, warm \T\ dry. Musculoskeletal: No signs and/or symptoms reported regarding the musculoskeletal system. Vital Signs: 09:20 BP 127 / 77; Pulse 67; Resp 18; Temp 98.1; Pulse Ox 100% on R/A; ar6 09:47 BP 167 / 102; Pulse 72; Resp 18; Temp 98.1; Pulse Ox 100% on R/A; Weight 62.6 kg; iw Height 4 ft. 11 in. ; Pain 10/10; 10:10 BP 134 / 74; Pulse 72; Resp 18; Pulse Ox 99% on R/A; ar6 12:14 BP 121 / 79; Pulse 77; Resp 18; Pulse Ox 99% on R/A; ar6 09:47 Body Mass Index 27.87 (62.60 kg, 149.86 cm) iw 09:47 Pain Scale: Adult iw ED Course: 09:26 Patient arrived in ED. im 09:28 Shay Lee MD is Attending Physician. rt 09:37 Renea Thompson, RN is Primary Nurse. ar6 09:51 Triage completed. iw 09:53 Arm band placed on. iw 10:10 No apparent distress. Awaiting lab results, Awaiting radiology results. ar6 10:10 Patient has correct armband on for positive identification. Bed in low position. Call ar6 light in reach. Side rails up X 1. Provided Education on: medications. 10:10 No provider procedures requiring assistance completed. Inserted saline lock: 20 gauge ar6 in right antecubital area, using aseptic technique. Blood collected. Flushed with 10 mL NS. 10:16 CBC with Diff Sent. ar6 10:16 CMP Sent. ar6 10:16 Lipase Sent. ar6 10:16 Test, Urine Sent. ar6 10:16 Urinalysis w/ reflexes Sent. ar6 10:44 CT Abd/Pelvis - IV Contrast Only In Process Unspecified. EDMS 12:20 IV discontinued, intact, bleeding controlled, No redness/swelling at site. Pressure ar6 dressing applied. Administered Medications: 10:10 Drug: NS 0.9% IV 1000 ml IV at 1 bolus Per protocol; 1000 mL bolus Route: IV; Rate: 1 ar6 bolus; Site: right antecubital; 10:44 Follow up: Response: No adverse reaction; IV Status: Completed infusion; IV Intake: ar6 1000ml 11:29 Follow up: Response: No adverse reaction; IV Status: Completed infusion mb9 10:10 Drug: Ondansetron IVP 4 mg IVP once; over 2 minutes Route: IVP; Site: right antecubital;ar6 10:44 Follow up: Response: No adverse reaction ar6 11:29 Follow up: Response: No adverse reaction mb9 10:10 Drug: morphine IVP or IV 4 mg IVP once over 4 mins Route: IVP; Infused Over: 4 mins; ar6 Site: right antecubital; 10:44 Follow up: Response: No adverse reaction; Pain is decreased ar6 11:29 Follow up: Response: No adverse reaction mb9 Medication: 12:20 VIS not applicable for this client. ar6 Intake: 10:44 IV: 1000ml; Total: 1000ml. ar6 Outcome: 11:58 Discharge ordered by . rt 12:20 Discharged to home ambulatory, ar6 12:20 Condition: good 12:20 Discharge instructions given to patient, Instructed on discharge instructions, follow up and referral plans. medication usage, Demonstrated understanding of instructions, follow-up care, medications, Prescriptions given X 2, 12:21 Patient left the ED. ar6 Signatures: Dispatcher [employer] Josee Watson RN RN iw Wilkerson, Obdulia Nielson RN RN mb9 Shay Lee MD MD rt Mendoza, Itzel im Roberts, Amber, RN RN ar6
--- NOTE | 2024-04-12 11:58 | EDPHYS ---
Physician Documentation [facility] Name: Maru Khoury Age: 43 yrs Sex: Female : 1980 Arrival Date: 04/12/2024 Time: 09:23 Bed 19 Private MD: ED Physician Shay Lee HPI: 04/12 09:58 This 43 yrs old Female presents to ER via Ambulatory with complaints of rt Abdominal Pain, Doesn't Feel Right. 09:58 Patient presents to the ED with a suprapubic pain starting at about 2 AM. Patient rt states that she was well when she went to sleep. Denies radiation of symptoms, states it is sharp in nature. Reports nausea with vomiting. Denies other acute complaints at this time. Patient states that she is currently on her period. Denies other acute complaints, symptoms are moderate in severity, no other aggravating or alleviating factors.. [employer]: 09:53 LMP 04/09/2024, unknown iw Historical: - Allergies: 09:51 Lisinopril; iw 09:51 Ibuprofen; iw - PMHx: 09:51 Hypertension; iw - PSHx: 09:51 gastric sleeve; Cholecystectomy; section; iw - Immunization history:: Adult Immunizations not up to date. - Infectious Disease History:: Denies. - Social history:: Smoking status: Patient denies any tobacco usage or history of. - Family history:: not pertinent. ROS: 09:58 Constitutional: Negative for fever, chills, and weight loss, Cardiovascular: Negative rt for chest pain, palpitations, and edema, Respiratory: Negative for shortness of breath, cough, wheezing, and pleuritic chest pain, : negative for dysuria MS/Extremity: Negative for injury and deformity, Skin: Negative for injury, rash, and discoloration, Neuro: Negative for headache, weakness, numbness, tingling, and seizure, 09:58 Abdomen/GI: Positive for abdominal pain, nausea and vomiting, Exam: 10:00 Constitutional: This is a well developed, well nourished patient who is awake, alert, rt and in no acute distress. Head/Face: Normocephalic, atraumatic. Chest/axilla: Normal chest wall appearance and motion. Nontender with no deformity. No lesions are appreciated. Cardiovascular: Regular rate and rhythm with a normal S1 and S2. No gallops, murmurs, or rubs. Normal PMI, no JVD. No pulse deficits. Respiratory: Lungs have equal breath sounds bilaterally, clear to auscultation and percussion. No rales, rhonchi or wheezes noted. No increased work of breathing, no retractions or nasal flaring. Skin: Warm, dry with normal turgor. Normal color with no rashes, no lesions, and no evidence of cellulitis. MS/ Extremity: Pulses equal, no cyanosis. Neurovascular intact. Full, normal range of motion. Neuro: Awake and alert, GCS 15, oriented to person, place, time, and situation. Cranial nerves II-XII grossly intact. Motor strength 5/5 in all extremities. Sensory grossly intact. Cerebellar exam normal. Normal gait. 10:00 Abdomen/GI: Tenderness to the suprapubic region with no rebound, guarding, distention, Vital Signs: 09:20 BP 127 / 77; Pulse 67; Resp 18; Temp 98.1; Pulse Ox 100% on R/A; ar6 09:47 BP 167 / 102; Pulse 72; Resp 18; Temp 98.1; Pulse Ox 100% on R/A; Weight 62.6 kg; iw Height 4 ft. 11 in. ; Pain 10/10; 10:10 BP 134 / 74; Pulse 72; Resp 18; Pulse Ox 99% on R/A; ar6 12:14 BP 121 / 79; Pulse 77; Resp 18; Pulse Ox 99% on R/A; ar6 09:47 Body Mass Index 27.87 (62.60 kg, 149.86 cm) iw 09:47 Pain Scale: Adult iw MDM: 09:38 Patient medically screened. rt 12:00 Differential Diagnosis Ovarian cyst, UTI, kidney stone, pyelonephritis. Data reviewed: rt vital signs, nurses notes, lab test result(s), radiologic studies. I considered the following discharge prescriptions or medication management in the emergency department Medications were administered in the Emergency Department. See MAR. Independent interpretation of the following test(s) in the Emergency Department CT Scan: My interpretation is No ureteral stone seen on interpretation of CT scan images. Test considered but Not performed: Ultrasound Low suspicion for ovarian torsion given patient's clinical presentation, ultrasound indicated emergently, I did discuss findings of fluid in the endocervical canal with the patient as well as radiology recommendations for ultrasound, states that she wishes to follow-up with her [employer] for this.. Care significantly affected by the following chronic conditions: Hypertension. Counseling: I had a detailed discussion with the patient and/or guardian regarding the historical points, exam findings, and any diagnostic results supporting the discharge/admit diagnosis, lab results, radiology results, the need for outpatient follow up, to return to the emergency department if symptoms worsen or persist or if there are any questions or concerns that arise at home. Response to treatment: the patient's symptoms have markedly improved after treatment. 04/12 09:44 Order name: CBC with Diff; Complete Time: 10:38 rt 04/12 09:44 Order name: CMP; Complete Time: 10:38 rt 04/12 09:44 Order name: Lipase; Complete Time: 10:38 rt 04/12 09:44 Order name: Test, Urine; Complete Time: 10:38 rt 04/12 09:44 Order name: Urinalysis w/ reflexes; Complete Time: 10:38 rt 04/12 09:44 Order name: CT Abd/Pelvis - IV Contrast Only; Complete Time: 11:49 rt 04/12 09:44 Order name: IV Saline Lock; Complete Time: 10:16 rt 04/12 09:44 Order name: Labs collected and sent; Complete Time: 10:16 rt Administered Medications: 10:10 Drug: NS 0.9% IV 1000 ml IV at 1 bolus Per protocol; 1000 mL bolus Route: IV; Rate: 1 ar6 bolus; Site: right antecubital; :44 Follow up: Response: No adverse reaction; IV Status: Completed infusion; IV Intake: ar6 1000ml 11:29 Follow up: Response: No adverse reaction; IV Status: Completed infusion mb9 10:10 Drug: Ondansetron IVP 4 mg IVP once; over 2 minutes Route: IVP; Site: right antecubital;ar6 10:44 Follow up: Response: No adverse reaction ar6 11:29 Follow up: Response: No adverse reaction mb9 10:10 Drug: morphine IVP or IV 4 mg IVP once over 4 mins Route: IVP; Infused Over: 4 mins; ar6 Site: right antecubital; :44 Follow up: Response: No adverse reaction; Pain is decreased ar6 11:29 Follow up: Response: No adverse reaction mb9 Disposition Summary: 04/12/24 11:58 Discharge Ordered Notes: Location: Home rt Problem: new rt Symptoms: have improved rt Condition: Stable rt Diagnosis - Other ovarian cysts rt Followup: rt - With: Private Physician - When: 2 - 3 days - Reason: Discharge Instructions: - Discharge Summary Sheet rt - Ovarian Cyst rt Forms: - Medication Reconciliation Form rt - Antibiotic Education rt - Prescription Opioid Use rt - Patient Portal Instructions rt - Leadership Thank You Letter rt - Work release form ar6 Prescriptions: - acetaminophen-codeine 300-30 mg Oral tablet - take 1 tablet ORAL route every 6 hours as needed for pain; 15 tablet; Refills: rt 0, Product Selection Permitted - ondansetron 4 mg Oral Tablet,disintegrating - take 1 tablet ORAL route every 6 hours as needed for nausea; 15 tablet; rt Refills: 0, Product Selection Permitted Signatures: Dispatcher [employer] Josee Watson RN RN iw Shay Lee MD MD rt Renea Thompson RN RN ar6 Obdulia Leon RN mb9 Corrections: (The following items were deleted from the chart) 09:45 09:44 CBC+H.LAB.BRZ ordered. EDMS EDMS 09:45 09:44 COMPREHENSIVE METABOLIC PANEL+C.LAB.BRZ ordered. EDMS EDMS 09:45 09:44 LIPASE+C.LAB.BRZ ordered. EDMS EDMS 09:45 09:44 Test, Urine+UC.LAB.BRZ ordered. EDMS EDMS 09:45 09:44 Urinalysis+U.LAB.BRZ ordered. EDMS EDMS
[2024-04-12 12:25] VITALS: TEMP 98.1
[2024-04-12 12:27] VITALS: O2SAT 99
[2024-04-12 12:28] VITALS: BP 121/79
== END 2024-04-12 12:21 | disposition home or self-care (01) ==
LOC: ER 09:23
DX: N83.299 Other ovarian cyst, unspecified side (principal); I10 Essential (primary) hypertension; Z98.84 Bariatric surgery status; Z88.8 Allergy status to other drugs, medicaments and biological substances
CPT/HCPCS: 96361; 85025; 81001; 36415; 81025; 83690; 80053; 74177; 96375; 96374; 99284; Q9967; J2405; J7030

== ENCOUNTER 2024-06-25 16:20 | Emergency (ER) | payer BC ==
--- OUTSIDE RECORDS SUMMARY | 2024-06-25 16:26 | XMS REPORT | Continuity of Care Document ---
Author Name Unknown Address [address] [facility] [address] [place] [address] [facility] [address] [facility] [address] [place] [address] Support Name Relationship Address Phone NO, CONTACT OT [address] [place] [address] NO, CONTACT OT [address] [place] [address] [address] MICHELLE [address] [place] [address] L, [place] [address] DENIZ MICHELLE SPOU [address] [place] [address] DENIZ MICHELLE Unknown Unavailable Care Team Providers Care Scarf Gluer Name Role Phone QUENTIN SANTOS Primary Care Physicia n Unavailable Lidia Trevizo Attending Clinician UnavailMICKEY Montanez Attending Clinician Unavailable SINCERE MCCLENDON Attending Clinician Unavailable Todd Meyers Attending Clinician Unavailable KADEEM PIPER Attending Clinician Unavailable Therapy, [facility] Attending Clinician Unavailable Kadeem Piper MD Attending Clinician [phone] Juarez Lares DO Attending Clinician [phone] HAILEY LAIRD Attending Clinician Unavailable Lidia Trevizo Admitting Clinician UnavailTodd Wilson Admitting Clinician Unavailable Physician, No Primary or Family Admitting Clinic gerson Unavailable Payers Payer Name Policy Type Policy Number Effective Date Expirati on Date Source [facility] [id number] 2020 00:00:00 Problems Condition Name Condition Details Condition Category Status Onset Date Resolution Date Last Treatment Date Treating Clinician Comments Source No known active problems No known active problems Disease Univers [facility] Allergies, Adverse Reactions, Alerts Allergy Name Allergy Type Status Severity Reaction(s) Onset Date Inactive Date Treating Clinician Comments Source Ibuprofe n Propensi ty to adverse reaction s Active Other - See comments 04-07 00:00: 00 Raises blood pressure [facility] Lisinopr il Propensi ty to adverse reaction s Active Cough 04-07 00:00: 00 [facility] IBUPROFE N DRUG INGREDI Active Other-Cmnt 04-07 00:00: 00 [facility] LISINOPR IL DRUG INGREDI Active COUGH 04-07 00:00: 00 [facility] ibuprofe n DA Active U ELEVATES BLOOD PRESSURE 04-01 00:00: 00 [facility] No Known Allergie s DA Active U 8 00:00: 00 [facility] No Known Allergie s DA Active U 8 00:00: 00 [facility] ibuprofe n DA Active U 04-01 00:00: 00 [facility] NO KNOWN ALLERGIE S Drug Class Active [facility] Social History Social Habit Start Date Stop Date Quantity Comments Source Exposure to SARS-CoV-2 (event) Yes [facility] Sex Assigned At 1980 00:00:00 1980 00:00:00 [facility] Smoking Status Start Date Stop Date Source Unknown if ever smoked [facility] Medications Ordered Medication Name Filled Medication Name Start Date Stop Date Current Medication? Ordering Clinician Indication Dosage Frequency Signature (SIG) Comments Components Source casirivimab -imdevimab 1200 mg in 60 mL NS MINI-BAG 04-09 21:30: 00 04-09 21:47 :00 No [id number] 1200mg [facility] casirivimab -imdevimab 1200 mg in 60 mL NS MINI-BAG 04-09 21:30: 00 04-09 21:47 :00 No [id number] 1200mg 1,200 mg, IV Infusion, ONCE, Administer over 20 Minutes, Flori 04/09/21 at 1630, For 1 dose
Ad cloth reeler as an IV infusion via pump or gravity through an intravenou s line containing a sterile, in-line or add-on 0.2-micron polyethers ulfone (PES) filter. Stable 36 hours refrigerat ed; 4 hours at room temperatur e.
[facility] casirivimab -imdevimab (REGEN-COV (EUA)) 1,200 mg in NaCl 0.9% (NS) 60 mL IV infusion 04-09 21:15: 00 04-09 20:22 :28 No [id number] 1200mg [facility] iopamidol (ISOVUE 370-500 mL) injection 100 mL 04-07 20:09: 00 04-07 20:10 :00 No [id number] 100mL 100 mL, Intravenou s, ONCE, 1 dose, [facility] 04/07/21 at 1530, Routine [facility] chlorphenir amine 4 mg tablet 04-07 00:00: 00 Yes [id number] 4mg Take 1 tablet by mouth every 6 (six) hours as needed for Allergies or Runny nose. [facility] calcium/mag nesium/zinc (CALCIUM-MA GNESUIUM-ZI NC) 333-133-5 mg Tab 04-07 00:00: 00 Yes [id number] 1{each} Take 1 Each by mouth daily. [facility] benzonatate 100 mg capsule 04-07 00:00: 00 Yes [id number] 100mg Take 1 capsule by mouth 3 (three) times daily as needed for Cough. [facility] ondansetron 4 mg disintegrat ing tablet 04-07 00:00: 00 Yes [id number] 4mg Take 1 tablet by mouth every 8 (eight) hours as needed for Nausea and Vomiting (N/V). [facility] vitamin D3-folic acid 125 mcg (5,000 unit)-1 mg Tab 04-07 00:00: 00 05-08 04:59 :00 No [id number] 1{tbl} Take 1 tablet by mouth daily for 30 days. [facility] Vital Signs Vital Name Observation Time Observation Value Mark saldivar Systolic blood pressure 2021-04-09 22:32:00 143 mm[Hg] [facility] Diastolic blood pressure 2021-04-09 22:32:00 86 mm[Hg] [facility] Heart rate 2021-04-09 22:32:00 107 /min Un[facility] Body temperature 2021-04-09 22:32:00 36.72 Barbra [facility] Oxygen saturation in Arterial blood by Pulse oximetry 2021-04-09 22:32:00 96 /min [facility] Respiratory rate 2021-04-09 21:30:00 20 /min [facility] Body height 2021-04-09 20:09:00 147.3 cm [facility] Body weight 2021-04-09 20:09:00 78.472 kg [facility] BMI 2021-04-09 20:09:00 36.16 kg/m2 [facility] Systolic blood pressure 2021-04-07 21:00:00 138 mm[Hg] [facility] Diastolic blood pressure 2021-04-07 21:00:00 102 mm[Hg] [facility] Heart rate 2021-04-07 21:00:00 116 /min [facility] Respiratory rate 2021-04-07 21:00:00 23 /min [facility] Oxygen saturation in Arterial blood by Pulse oximetry 2021-04-07 21:00:00 100 /min [facility] Body temperature 2021-04-07 19:05:00 37.94 Barbra [facility] Body height 2021-04-07 19:05:00 147.3 cm [facility] Body weight 2021-04-07 19:05:00 78.926 kg [facility] BMI 2021-04-07 19:05:00 36.37 kg/m2 [facility] Procedures Procedure Date / Time Performed Performing Clinicia n Source [id number] 2021-05-21 00:00:00 MARRO.02 [facility] [id number] 2021-05-21 00:00:00 MARRO.02 [facility] [id number] 2021-05-21 00:00:[address] MARRO[address] [facility] [address] CHEST PULMONARY ANGIOGRAM 2021-04-07 20:17:19 Singer [facility] URINALYSIS 2021-04-07 20:05:[address] [facility] TROPONIN I 2021-04-07 20:02:00 Singer [facility] COMP. METABOLIC PANEL ([id number]) 2021-04-07 20:02:00 Singer [facility] CBC WITH DIFF 2021-04-07 20:02:00 Singer [facility] N-TERMINAL PRO-BNP 2021-04-07 20:02:00 Singer [facility] NOTICE OF PRIVACY PRACTICES 2021-04-07 18:41:00 Doctor Unassigned, [place] [facility] CONSENT/REFUSAL FOR DIAGNOSIS AND TREATMENT 2021-04-07 18:40:33 Doctor Unassigned, [place] [facility] Encounters Start Date/Time End Date/Time Encounter Type Admission Type Attending [facility] Care Facility Care Department Encounter ID Source 2023-11-03 12:00:00 2023-11-03 12:00:00 Outpatient Lidia Saunders [facility] [id number] [facility] 2022-10-21 12:00:00 2022-10-21 12:00:00 Outpatient Lidia Saunders [facility] [id number] [facility] 2022-05-05 14:40:00 2022-05-05 14:40:00 Outpatient MICKEY WATKINS [facility] [id number] [facility] 2022-05-01 16:40:00 2022-05-01 16:40:00 Outpatient SINCERE NEFF [facility] [id number] [facility] 2021-09-11 15:33:00 2021-09-11 15:33:00 Outpatient Todd Meyers [facility] [id number] [facility] 2021-05-21 14:45:00 2021-05-22 11:54:00 Inpatient Todd Glover [facility] [id number] [facility] 2021-04-28 00:00:00 2021-04-28 00:00:00 Outpatient [facility] PENFHETJOJ TY- [facility] 2021-04-09 15:00:00 2021-04-09 15:00:00 Outpatient KADEEM GARCIA [facility] [id number] [facility] 2021-04-09 13:03:47 2021-04-09 14:03:47 Nurse Visit Therapy, Adc CovKadeem Boswell [facility] [id number] [facility] 2021-04-07 14:08:00 2021-04-07 16:44:00 Emergency LaresJuarez walters [facility] [id number] [facility] 2021-04-07 13:39:00 2021-04-07 13:39:00 Emergency X [facility] ERT [id number] [facility] 2021-04-01 08:00:00 2021-04-01 08:00:00 Outpatient Todd Glover [facility] [id number] [facility] 2021-03-31 00:00:00 2021-03-31 00:00:00 Outpatient HAILEY HUNTLEY [facility] [id number] [facility] Results Test Description Test Time Test Comments Results Result Co mments Source [id number] 20:47:00* Test Item Value Reference Range Interpretation Comme nts GLUBED (test code = GLUBED) 149 MG/DL 70-105 H UR HCG [id number] 09:05:00* Test Item Value Reference Range Interpretation Comme nts UR HCG QUAL (test code = HCGQLU) NEGATIVE NEGATIVE CT CHEST PULMONARY [id number] 21:15:341. No evidence of acute or chronic [...] reviewed this study and agree with theabove report.[facility] [id number] 20:46:24 * Test Item Value Reference Range Interpretation Comme nts APPEARANCE (test code = 2497526347) Hazy Clear A COLOR (test code = 5672274787) Renea Yellow A PH (test code = 8886859558) 4.8-8.0 SP GRAVITY (test code = 7230118184) 1.003-1.030 GLU U QUAL (test code = 0721093229) Normal Normal BLOOD (test code = 8918866772) 1+ Negative A KETONES (test code = 9668168377) 80 mg/dL Negative A PROTEIN (test code = 2887-8) 100 mg/dL Negative A UROBILIN (test code = 6446433014) 4.0 mg/dL Normal A BILIRUBIN (test code = 4297663790) Negative Negative NITRITE (test code = 6792679536) Negative Negative LEUK SEAN (test code = 9530405693) Negative Negative RBC/HPF (test code = 3278197743) See_Comment [Automated [employer]] The system which generated this result transmitted reference range: 0 - 3 HPF. The reference range was not used to interpret this result as normal/abnormal. WBC/HPF (test code = 4210177812) See_Comment [Automated [employer]] The system which generated this result transmitted reference range: 0 - 5 HPF. The reference range was not used to interpret this result as normal/abnormal. BACTERIA (test code = 9744453921) Negative Negative MUCOUS (test code = 9485378701) Moderate Negative LPF A SQ EPITH (test code = 3561370192) HPF Lab Interpretation (test code = 61411-4) [id number] 20:41:50* Test Item Value Reference Range Interpretation Comments TROPONIN I (test code = 0625319029) 0.002 ng/mL See_Comment [Automated message] The system [...] of biotin. Lab Interpretation (test code = 23777-3) Normal [facility] (93977)2021-04-07 20:37:33* Test Item Value Reference Range Interpretation Comme nts NA (test code = 8824460002) 139 mmol/L 135-145 K (test code = 8608395012) 3.5 mmol/L 3.5-5.0 CL (test code = 6171085046) 104 mmol/L 98-108 CO2 TOTAL (test code = 7339807020) 23 mmol/L 23-31 AGAP (test code = 4447743002) 2-16 BUN (test code = 5397258363) 10 mg/dL 7-23 GLUCOSE (test code = 9198213878) 104 mg/dL 70-110 CREATININE (test code = 4136707601) 0.67 mg/dL 0.50-1.04 TOTAL BILI (test code = 2492725677) 0.4 mg/dL 0.1-1.1 CALCIUM (test code = 8942890893) 9.5 mg/dL 8.6-10.6 T PROTEIN (test code = 2155500647) 8.5 g/dL 6.3-8.2 H ALBUMIN (test code = 3792611657) 4.7 g/dL 3.5-5.0 ALK PHOS (test code = 5852283821) 72 U/L 34-122 ALTv (test code = 1742-6) 66 U/L 5-35 H AST(SGOT) (test code = 5659436102) 82 U/L 13-40 H eGFR (test code = 9979094628) mL/min/1.73m2 JUANJO (test code = JUANJO) Association [...] imaging tests). Lab Interpretation (test code = 73230-4) [facility]normal [facility] [id number] 20:37:28* Test Item Value Reference Range Interpretation Comme nts NT-proBNP (test code = 6495396130) 25 pg/mL See_Comment [Automated message] The system which generated this result transmitted reference range: <=125. The reference range was not used to interpret this result as normal/abnormal. JUANJO (test code = JUANJO) Biotin has been reported to cause a negative bias, interpret results relative to patient's use of biotin. Lab Interpretation (test code = 99797-4) Normal [facility] WITH [id number] 20:25:06* Test Item Value Reference Range Interpretation Comme nts WBC (test code = 6690-2) See_Comment [Automated [employer]] The system which generated this result transmitted reference range: 4.30 - 11.10 10*3/?L. The reference range was not used to interpret this result as normal/abnormal. RBC (test code = 789-8) See_Comment H [Automated [employer]] The system which generated this result transmitted [...] 33.8 g/dL 31.6-35.1 RDW-SD (test code = 71604-1) 40.9 fL 39.0-49.9 RDW-CV (test code = 788-0) 12.7 % 12.0-15.5 PLT (test code = 777-3) See_Comment [Automated [employer] ge] The system which generated this result transmitted reference range: 166 - 358 10*3/?L. The reference range was not used to interpret this result as normal/abnormal. MPV (test code = 83879-3) 10.0 fL 9.5-12.9 NRBC/100 WBC (test code = 5271804405) See_Comment [Automated [employer] ssage] The system which generated this result transmitted reference range: 0.0 - 10.0 /100 WBCs. The reference range was not used to interpret this result as normal/abnormal. NRBC x10^3 (test code = 5032908022) <0.01 See_Comment [Automated [employer] ge] The system which generated this result transmitted reference range: 10*3/?L. The reference range was not used to interpret this result as normal/abnormal. GRAN MAT (NEUT) % (test code = 770-8) 73.2 % IMM GRAN % (test code = 5683371846) 0.20 % LYMPH % (test code = 736-9) 20.5 % MONO % (test code = 5905-5) 5.9 % EOS % (test code = 713-8) 0.0 % BASO % (test code = 706-2) 0.2 % GRAN MAT x10^3(ANC) (test code = 2607457275) 4.36 10*3/uL 1.88-7.09 IMM GRAN x10^3 (test code = 1318811969) <0.03 0.00-0.06 LYMPH x10^3 (test code = 731-0) 1.22 10*3/uL 1.32-3.29 L MONO x10^3 (test code = 742-7) 0.35 10*3/uL 0.33-0.92 EOS x10^3 (test code = 711-2) <0.03 0.03-0.39 L BASO x10^3 (test code = 704-7) <0.03 0.01-0.07 Lab Interpretation (test code = 99302-1) Abnormal [facility] nCoV [id number] 14:43:00* Test Item Value Reference Range Interpretation Comme nts Coronavirus 2019 nCoV Bedside (test code = HGHYD33ZZWWG) Positive Negative A Critical Value reported toFirst Name: DIANE Last Name: Jamal. (DR. MEYERS OFFICE)RESULTS READ BACK AND VERIFIEDby [id number], on 04/01/21, @ 1435. UR HCG [id number] 14:17:00* Test Item Value Reference Range Interpretation Comme nts UR HCG QUAL (test code = HCGQLU) NEGATIVE NEGATIVE Notes Date/Time Note Provider Source 2021-04-01 14:02:00 [id number] [place] [address] PATIENT NAME: SYD MICHELLE ADMIT DATE: ACCOUNT NO: [id number] ROOM NO: AGE: 40 REPORT TYPE: eELECTROCARDIOGRAM SEX: F ADMITTING PHYSICIAN: Todd Meyers MD ATTENDING PHYSICIAN: Todd Meyers MD Order: [id number] Test Reason : SDS Test Date/Time Stamp: [...] ECG No previous ECGs available Confirmed by EDELMIRA STEVENS MD ([id number]) on 04/08/2021 8:25:42 AM Referred By: Todd Meyers Confirmed by:EDELMIRA STEVENS MD at 0825 PATIENT NAME: SYD MICHELLE [facility]"
[2024-06-25 18:05] LABS: Specific Gravity 1.025 (1.005-1.030)
[2024-06-25 18:06] LABS: Specific Gravity 1.025 (1.005-1.030); Sqamous Epithelial <5 /HPF (None Seen); Urine Bacteria None Seen /HPF (<20); Urine Bilirubin NEGATIVE (Negative); Urine Blood Trace (Negative); Urine Clarity Turbid (Clear); Urine Color Light-Yellow (Yellow); Urine Culture Reflex Order NOT NEEDED; Urine Glucose NEGATIVE (Negative); Urine Ketones NEGATIVE (Negative); Urine Microscopic Reflex YN ORDER UMIC; Urine Nitrite NEGATIVE (Negative); Urine Protein NEGATIVE (Negative); Urine RBC <5 /HPF (None Seen); Urine Urobilinogen 1+ (Normal); Urine WBC <5 /HPF (<5)
[2024-06-25 19:08] LABS: Absolute Basophils 0.1 K/uL (0-0.5); Absolute Eosinophils 0.1 K/uL (0-0.5); Absolute Lymphocytes (CBC) 2.7 K/uL (0.7-4.9); Absolute Monocytes 0.5 K/uL (0.1-1.3); Absolute Neutrophil 3.1 K/uL (1.8-8.0); Basophils % 1.2 % (0-1.3); Eosinophils % 1.4 % (0-4.4); Hemoglobin 12.3 g/dL (12.0-15.0); Lymphocytes % 42.3 % (15.3-44.8); MCHC 33.1 g/dL (32.0-36.0); MCV 90.4 fL (80-100); MPV 7.4 fL (7.6-11.3); Monocytes % 7.4 % (3.3-12.3); Neutrophils % 47.7 % (41.7-73.7); Platelets 333 thou/uL (152-406); RBC Red Blood Cell Count 4.09 M/uL (3.86-4.86); Red Cell Distribution Width 14.2 % (12.1-15.2)
[2024-06-25] MEDS ORDERED: NA CHLORIDE 0.9% 1,000 ML ONE (19:24)
[2024-06-25] MEDS ORDERED: MORPHINE 4 MG/ML SYR ONE (19:24)
[2024-06-25] MEDS ORDERED: CIPROFLOXACIN 400mg IV 400 MG/200 ML BAG IV ONE (19:29)
[2024-06-25] MEDS ORDERED: METRONIDAZOLE 500mg IVPB 500 MG/100 ML BAG IV ONE (19:29)
[2024-06-25] MEDS ORDERED: FAMOTIDINE 20 MG/2 ML VIAL IV ONE (19:29)
[2024-06-25 19:35] LABS: Albumin 3.5 g/dL (3.4-5.0); Anion Gap 6.1 mEq/L (5.0-15.0); Bilirubin Total 0.2 mg/dL (0.2-1.0); Globulin 3.6 g/dL (2.3-3.5); Potassium 4.1 mEq/L (3.5-5.1); Protein, Total 7.1 g/dL (6.4-8.2)
--- NOTE | 2024-06-25 20:10 | RAD REPORT ---
EXAMINATION: CT ABDOMEN AND PELVIS WITH CONTRAST CLINICAL INDICATION: Abdominal pain. GI bleed TECHNIQUE: CT abdomen and pelvis was performed, after the administration of 100 cc Isovue-300.. Sagit chadd and coronal reconstructions were obtained. One or more of the following dose reduction techniques were used: Automated exposure control, adjustment of the mA and kV according to patient si ze, and iterative reconstruction. Unless otherwise specified, incidental findings do not require dedicated imaging follow-up. [id number]. Oral contrast was not given which limits evaluation of bowel and appendix. COMPARISON: none FINDINGS: Liver, spleen, pancreas, adrenals and kidneys appear unremarkable Cholecystectomy Previously described right ovarian cyst has resolved.. No adnexal mass 3.5 cm soft tissue structure within the ascending colon. No evidence of diverticulitis. Post surgical changes involving the stomach : IMPRESSION: 3.5 cm soft tissue structure within the ascending colon is not visualized on the prior CT scan and mo st likely represents unusual appearing stool. A mass can have a similar appearance. Follow-up CT scan in a few weeks would be helpful for reevaluation.
--- NOTE | 2024-06-25 20:14 | ER ---
Nurse's Notes [facility] Name: Maru Khoury Age: 43 yrs Sex: Female : 1980 Arrival Date: 06/25/2024 Time: 16:20 Bed 11 Private MD: Diagnosis: GI Bleed/ Gastrointestinal hemorrhage, unspecified-LOWER, STABLE;Abdominal pain, unspecified;Abnormal findings on diagnostic imaging of other abdominal regions, including retroperitoneum-3.5 CM SOFT TISSUE MASS IN THE ASCENDING COLON, MOST LIKELY STOOL Presentation: 06/25 16:46 Chief complaint: Patient states: 1 episode of rectal bleeding on Tuesday and 1 episode aa5 today. Pt reports intermittent lower abd pain. Pt denies nausea/vomiting. Coronavirus screen: At this time, the client does not indicate any symptoms associated with coronavirus-19. Ebola Screen: Patient denies travel to an Ebola-affected area in the 21 days before illness onset. Initial Sepsis Screen: Does the patient meet any 2 criteria? No. Patient's initial sepsis screen is negative. Does the patient have a suspected source of infection? No. Patient's initial sepsis screen is negative. Risk Assessment: Do you want to hurt yourself or someone else? Patient reports no desire to harm self or others. Onset of symptoms was June 22, 2024. 16:46 Acuity: SB 3 aa5 16:46 Method Of Arrival: Ambulatory aa5 Triage Assessment: 18:50 General: Appears in no apparent distress. Behavior is calm, appropriate for age. iw Historical: - Allergies: 16:47 Ibuprofen; aa5 16:47 Lisinopril; aa5 - PMHx: 16:47 Hypertension; aa5 - PSHx: 16:47 section; Cholecystectomy; gastric sleeve; aa5 Screenin:19 [facility] ED Fall Risk Assessment (Adult) History of falling in the last 3 months, iw including since admission Score/Fall Risk Level 0 - 2 = Low Risk Oriented to surroundings, Maintained a safe environment. [facility] ED Fall Risk Assessment (Adult) Confusion or Disorientation No (0 pts) Intoxicated or Sedated No (0 pts) Impaired Gait No (0 pts) Mobility Assist Device Used No (0 pt) Altered Elimination No (0 pt). Abuse screen: Denies threats or abuse. Denies injuries from another. Nutritional screening: No deficits noted. Tuberculosis screening: No symptoms or risk factors identified. Assessment: 18:45 General: Appears in no apparent distress. Behavior is calm, cooperative. Pain: iw Complains of pain in left lower quadrant and right lower quadrant. Neuro: Level of Consciousness is awake, alert, obeys commands, Oriented to person, place, time, situation, Moves all extremities. Respiratory: Respiratory effort is even, unlabored, Respiratory pattern is regular. GI: Abdomen is non-distended. Derm: Skin is intact, is healthy with good turgor. Musculoskeletal: Range of motion: intact in all extremities. 21:20 Reassessment: Patient appears in no apparent distress at this time. Patient and/or iw family updated on plan of care and expected duration. Pain level reassessed. Vital Signs: 16:46 BP 132 / 94; Pulse 80; Resp 16 S; Temp 98.4(TE); Pulse Ox 100% on R/A; Weight 63.05 kg aa5 (R); Height 4 ft. 11 in. (R); 21:00 BP 124 / 67; Pulse 79; Resp 16; Pulse Ox 98% on R/A; iw 16:46 Body Mass Index 28.07 (63.05 kg, 149.86 cm) aa5 ED Course: 16:23 Patient arrived in ED. ra3 16:45 Arm band placed on. aa5 16:47 Triage completed. aa5 16:53 Garo Christiansen MD is Attending Physician. [facility] 17:05 Radiology exam delayed due to lab results not completed at this time. (BUN/Creatinine) nj IV insertion attempt and/or patient not having appropriate IV at this time. 17:05 Radiology exam delayed due to test not completed at this time. nj 18:30 Initial lab(s) drawn, by me, sent to lab. Inserted saline lock: 22 gauge in right iw antecubital area, using aseptic technique. Blood collected. Flushed with 10 mL NS. 18:33 Radiology exam delayed due to lab results not completed at this time. (BUN/Creatinine). nj 18:57 Josee Wells, RN is Primary Nurse. 19:02 Radiology exam delayed due to lab results not completed at this time. (BUN/Creatinine) ls3 IV insertion attempt and/or patient not having appropriate IV at this time. 19:56 CT Abd/Pelvis - IV Contrast Only In Process Unspecified. EDMS 20:12 Broderick, Zheng, MD is Referral Physician. renard 21:20 No provider procedures requiring assistance completed. IV discontinued, intact, iw bleeding controlled, No redness/swelling at site. Pressure dressing applied. Administered Medications: 19:45 Drug: Famotidine IVP 20 mg IVP once; dilute with 10 mL 0.9% NaCl; give over 2 minutes iw Route: IVP; Site: right antecubital; 19:45 Drug: morphine IVP or IV 4 mg IVP once over 4 mins Route: IVP; Infused Over: 4 mins; iw Site: right antecubital; 19:45 Drug: NS 0.9% IV 1000 ml IV at 1 bolus Per protocol; to be given as a bolus over 60 iw minutes Route: IV; Rate: 1 bolus; Site: right antecubital; 20:45 Follow up: IV Status: Completed infusion iw 19:45 Drug: metroNIDAZOLE IVPB 500 mg 100 ml IVPB at 200 ml/hr once over 30 mins Volume: 100 iw ml; Route: IVPB; Rate: 200 ml/hr; Infused Over: 30 mins; Site: right antecubital; 20:15 Follow up: IV Status: Completed infusion iw 20:16 Drug: Ciprofloxacin IVPB 400 mg 200 ml IVPB once over 60 mins Volume: 200 ml; Route: iw IVPB; Infused Over: 60 mins; Site: right antecubital; 21:16 Follow up: IV Status: Completed infusion iw Outcome: 20:13 Discharge ordered by . renard 21:20 Discharged to home ambulatory, with family, iw 21:20 Condition: good 21:20 Discharge instructions given to patient, family, Instructed on discharge instructions, follow up and referral plans. medication usage, Demonstrated understanding of instructions, follow-up care, medications, Prescriptions given X 4, 21:21 Patient left the ED. iw Signatures: Dispatcher [employer] ED[facility] Garo Christiansen MD MD cha Williams, Irene RN RN iw Trista Jules RN RN aa5 Harjeet Walters Lynzie ls3 Lisa Wellington ra3 Corrections: (The following items were deleted from the chart) 16:48 16:46 BP 132 / 94; Pulse 80bpm; Resp 16bpm; Spontaneous; Pulse Ox 100% RA; Temp 98.4F aa5 Temporal; aa5
--- NOTE | 2024-06-25 20:14 | EDPHYS ---
Physician Documentation [facility] Name: Maru Khoury Age: 43 yrs Sex: Female : 1980 Arrival Date: 06/25/2024 Time: 16:20 Bed 11 Private MD: VALENTE Physician Garo Christiansen HPI: 06/25 19:17 This 43 yrs old Female presents to ER via Ambulatory with complaints of Bloody renard Stools - x2days. 19:17 The patient presents to the emergency department with rectal bleeding, Onset: The renard symptoms/episode began/occurred 2 day(s) ago. Abdominal pain: located in the right lower quadrant and left lower quadrant. Modifying factors: The symptoms are alleviated by nothing, the symptoms are aggravated by nothing. Associated signs and symptoms: Pertinent positives:. Severity of symptoms: At their worst the symptoms were mild in the emergency department the symptoms are unchanged. The patient has not experienced similar symptoms in the past. Historical: - Allergies: 16:47 Ibuprofen; aa5 16:47 Lisinopril; aa5 - PMHx: 16:47 Hypertension; aa5 - PSHx: 16:47 section; Cholecystectomy; gastric sleeve; aa5 ROS: 19:19 Constitutional: Negative for fever, chills, and weight loss, Eyes: Negative for injury, renard pain, redness, and discharge, ENT: Negative for injury, pain, and discharge, Neck: Negative for injury, pain, and swelling, Cardiovascular: Negative for chest pain, palpitations, and edema, Respiratory: Negative for shortness of breath, cough, wheezing, and pleuritic chest pain, Back: Negative for injury and pain, : Negative for injury, bleeding, discharge, and swelling, MS/Extremity: Negative for injury and deformity, Skin: Negative for injury, rash, and discoloration, Neuro: Negative for headache, weakness, numbness, tingling, and seizure, Psych: Negative for depression, anxiety, suicide ideation, homicidal ideation, and hallucinations, Allergy/Immunology: Negative for hives, rash, and allergies, Endocrine: Negative for neck swelling, polydipsia, polyuria, polyphagia, and marked weight changes, Hematologic/Lymphatic: Negative for swollen nodes, abnormal bleeding, and unusual bruising, 19:19 Abdomen/GI: Positive for abdominal pain, rectal bleeding, of the right lower quadrant and left lower quadrant, Exam: 19:19 Constitutional: This is a well developed, well nourished patient who is awake, alert, renard and in no acute distress. Head/Face: Normocephalic, atraumatic. Eyes: Pupils equal round and reactive to light, extra-ocular motions intact. Lids and lashes normal. Conjunctiva and sclera are non-icteric and not injected. Cornea within normal limits. Periorbital areas with no swelling, redness, or edema. ENT: Nares patent. No nasal discharge, no septal abnormalities noted. Tympanic membranes are normal and external auditory canals are clear. Oropharynx with no redness, swelling, or masses, exudates, or evidence of obstruction, uvula midline. Mucous membranes moist. Neck: Trachea midline, no thyromegaly or masses palpated, and no cervical lymphadenopathy. Supple, full range of motion without nuchal rigidity, or vertebral point tenderness. No Meningismus. Chest/axilla: Normal chest wall appearance and motion. Nontender with no deformity. No lesions are appreciated. Cardiovascular: Regular rate and rhythm with a normal S1 and S2. No gallops, murmurs, or rubs. Normal PMI, no JVD. No pulse deficits. Respiratory: Lungs have equal breath sounds bilaterally, clear to auscultation and percussion. No rales, rhonchi or wheezes noted. No increased work of breathing, no retractions or nasal flaring. Back: No spinal tenderness. No costovertebral tenderness. Full range of motion. Skin: Warm, dry with normal turgor. Normal color with no rashes, no lesions, and no evidence of cellulitis. MS/ Extremity: Pulses equal, no cyanosis. Neurovascular intact. Full, normal range of motion. Neuro: Awake and alert, GCS 15, oriented to person, place, time, and situation. Cranial nerves II-XII grossly intact. Motor strength 5/5 in all extremities. Sensory grossly intact. Cerebellar exam normal. Normal gait. Psych: Awake, alert, with orientation to person, place and time. Behavior, mood, and affect are within normal limits. 19:19 Abdomen/GI: Inspection: abdomen appears normal, Bowel sounds: normal, Palpation: mild abdominal tenderness, in the right lower quadrant and left lower quadrant, Vital Signs: 16:46 BP 132 / 94; Pulse 80; Resp 16 S; Temp 98.4(TE); Pulse Ox 100% on R/A; Weight 63.05 kg aa5 (R); Height 4 ft. 11 in. (R); 21:00 BP 124 / 67; Pulse 79; Resp 16; Pulse Ox 98% on R/A; iw 16:46 Body Mass Index 28.07 (63.05 kg, 149.86 cm) aa5 MDM: 16:53 Medical Screening Exam initiated renard 19:21 Differential diagnosis: diverticulitis, hemorrhoids, diverticulitis, Irritable bowel renard syndrome, non-specific abd pain, pancreatitis. Data reviewed: vital signs, nurses notes, lab test result(s), radiologic studies, CT scan. Consideration of Admission/Observation Escalation of care including admission/observation considered. I considered the following discharge prescriptions or medication management in the emergency department Medications were administered in the Emergency Department. See MAR. Care significantly affected by the following chronic conditions: Hypertension, Obesity. 20:11 Counseling: I had a detailed discussion with the patient and/or guardian regarding the renard historical points, exam findings, and any diagnostic results supporting the discharge/admit diagnosis, the presence of at least one elevated blood pressure reading (>120/80) during this emergency department visit, lab results, radiology results, the need for outpatient follow up, for definitive care, a family practitioner, a art framing manager. ED course: NORMAL EGD / COLONOSCOPE LESS THAN 1 YEAR AGO. 06/25 16:55 Order name: CBC with Diff; Complete Time: 19:24 [facility] 06/25 16:55 Order name: CMP; Complete Time: 19:44 [facility] 06/25 16:55 Order name: Lipase; Complete Time: 19:44 [facility] 06/25 16:55 Order name: Test, Urine; Complete Time: 19:24 [facility] 06/25 16:55 Order name: Urinalysis w/ reflexes; Complete Time: 19:24 [facility] 06/25 16:55 Order name: CT Abd/Pelvis - IV Contrast Only; Complete Time: 20:10 [facility] 06/25 16:55 Order name: IV Saline Lock; Complete Time: 19:20 [facility] 06/25 16:55 Order name: Labs collected and sent; Complete Time: 19:20 [facility] Administered Medications: 19:45 Drug: Famotidine IVP 20 mg IVP once; dilute with 10 mL 0.9% NaCl; give over 2 minutes iw Route: IVP; Site: right antecubital; 19:45 Drug: morphine IVP or IV 4 mg IVP once over 4 mins Route: IVP; Infused Over: 4 mins; iw Site: right antecubital; 19:45 Drug: NS 0.9% IV 1000 ml IV at 1 bolus Per protocol; to be given as a bolus over 60 iw minutes Route: IV; Rate: 1 bolus; Site: right antecubital; 20:45 Follow up: IV Status: Completed infusion iw 19:45 Drug: metroNIDAZOLE IVPB 500 mg 100 ml IVPB at 200 ml/hr once over 30 mins Volume: 100 iw ml; Route: IVPB; Rate: 200 ml/hr; Infused Over: 30 mins; Site: right antecubital; 20:15 Follow up: IV Status: Completed infusion iw 20:16 Drug: Ciprofloxacin IVPB 400 mg 200 ml IVPB once over 60 mins Volume: 200 ml; Route: iw IVPB; Infused Over: 60 mins; Site: right antecubital; 21:16 Follow up: IV Status: Completed infusion iw Disposition Summary: 06/25/24 20:13 Discharge Ordered Notes: Location: Home renard Problem: new renard Symptoms: have improved renard Condition: Stable renard Diagnosis - GI Bleed/ Gastrointestinal hemorrhage, unspecified - LOWER, STABLE renard - Abdominal pain, unspecified renard - Abnormal findings on diagnostic imaging of other abdominal regions, including renard retroperitoneum - 3.5 CM SOFT TISSUE MASS IN THE ASCENDING COLON, MOST LIKELY STOOL Followup: renard - With: Private Physician - When: 2 - 3 days - Reason: Recheck today's complaints, Continuance of care, Re-evaluation by your physician Followup: renard - With: Zheng Broderick MD - When: 2 - 3 days - Reason: Recheck today's complaints, Re-evaluation by your physician Discharge Instructions: - Discharge Summary Sheet renard - Abdominal Pain, Adult renard - Gastrointestinal Bleeding renard - Rectal Bleeding renard - Incidental Abnormal Radiological Finding renard - Rectal Bleeding, [id number] renard Forms: - Medication Reconciliation Form renard - Antibiotic Education renard - Prescription Opioid Use renard - Patient Portal Instructions renard - Leadership Thank You Letter renard Prescriptions: - Colace 100 mg Oral Tablet - take 1 tablet ORAL route every 12 hours; 14 tablet; Refills: 0, Product renard Selection Permitted - Flagyl 500 mg Oral tablet - take 1 tablet ORAL route every 6 hours for 7 days; 28 tablet; Refills: 0, renard Product Selection Permitted - Cipro 500 mg Oral tablet - take 1 tablet ORAL route every 12 hours for 7 days; 14 tablet; Refills: 0, renard Product Selection Permitted - dicyclomine 20 mg Oral tablet - take 1 tablet ORAL route 4 times per day; 28 tablet; Refills: 0, Product renard Selection Permitted Signatures: Dispatcher [employer] EDGaro Cannon MD MD cha Williams, Irene RN RN Trista Green RN RN aa5 Corrections: (The following items were deleted from the chart) 16:55 16:55 CBC+H.LAB.BRZ ordered. EDMS EDMS 16:55 16:55 COMPREHENSIVE METABOLIC PANEL+C.LAB.BRZ ordered. EDMS EDMS 16:55 16:55 LIPASE+C.LAB.BRZ ordered. EDMS EDMS 16:55 16:55 Test, Urine+UC.LAB.BRZ ordered. EDMS EDMS 16:55 16:55 Urinalysis+U.LAB.BRZ ordered. EDMS EDMS 16:55 16:55 Abdomen Pelvis W Con+CT.RAD.BRZ ordered. EDMS EDMS
[2024-06-25 23:10] VITALS: BP 132/94; TEMP 98.4; O2SAT 100
== END 2024-06-25 21:21 | disposition home or self-care (01) ==
LOC: ER 16:20
DX: K92.2 Gastrointestinal hemorrhage, unspecified (principal); R10.32 Left lower quadrant pain; R93.5 Abnormal findings on diagnostic imaging of other abdominal regions, including retroperitoneum; I10 Essential (primary) hypertension
CPT/HCPCS: 85025; 81001; 36415; 81025; 83690; 80053; 74177; Q9967; J0744; J7030; 96365; 96367; 96375; 99284

== ENCOUNTER 2024-11-08 18:28 | Emergency (ER) | payer BC ==
--- OUTSIDE RECORDS SUMMARY | 2024-11-08 18:31 | XMS REPORT | Continuity of Care Document ---
Author Name Unknown Address [address] [facility] [address] [place] [address] [facility] Address [address] [facility] [address] [place] [address] Care Team Providers Care Electric Wirer Name Role Phone QUENTIN SANTOS Primary Care Juanpablo n Unavailable No, PCP Attending Clinician Unavailable Lidia Trevizo Attending Clinician UnavailMICKEY Montanez Attending Clinician Unavailable SINCERE MCCLENDON Attending Clinician Unavailable Todd Meyers Attending Clinician Unavailable KADEEM PIPER Attending Clinician Unavailable Therapy, [facility] Covid Infusion Attending Clinician Unavailable Kadeem Piper MD Attending Clinician [phone] Juarez Lares DO Attending Clinician [phone] HAILEY LAIRD Attending Clinician Unavailable Lidia Trevizo Admitting Clinician UnavailTodd Wilson Admitting Clinician Unavailable Physician, No Primary or Family Admitting Clinic gerson Unavailable Payers Payer Name Policy Type Policy Number Effective Date Expirati on Date Source [facility] [id number] 2020 00:00:00 Problems Condition Name Condition Details Condition Category Status Onset Date Resolution Date Last Treatment Date Treating Clinician Comments Source No known active problems No known active problems Disease Univers [facility] Allergies, Adverse Reactions, Alerts Allergy Name Allergy Type Status Severity Reaction(s) Onset Date Inactive Date Treating Clinician Comments Source Ibuprofe n Propensi ty to adverse reaction s Active Other - See comments 04-07 00:00: 00 Raises blood pressure [facility] Lisinopr il Propensi ty to adverse reaction s Active Cough 04-07 00:00: 00 [facility] IBUPROFE N DRUG INGREDI Active Other-Cmnt 04-07 00:00: 00 [facility] LISINOPR IL DRUG INGREDI Active COUGH 04-07 00:00: 00 [facility] No Known Allergie s DA Active U 8 00:00: 00 [facility] ibuprofe n DA Active U 8 00:00: 00 [facility] ibuprofe n DA Active U ELEVATES BLOOD PRESSURE 04-01 00:00: 00 [facility] No Known Allergie s DA Active U 8 00:00: 00 [facility] NO KNOWN ALLERGIE S Drug Class Active [facility] Social History Social Habit Start Date Stop Date Quantity Comments Source Exposure to SARS-CoV-2 (event) Yes [facility] Sex Assigned At 1980 00:00:00 1980 00:00:00 [facility] Smoking Status Start Date Stop Date Source Unknown if ever smoked [facility] Medications Ordered Medication Name Filled Medication Name Start Date Stop Date Current Medication? Ordering Clinician Indication Dosage Frequency Signature (SIG) Comments Components Source casirivimab -imdevimab 1200 mg in 60 mL NS MINI-BAG 04-09 21:30: 00 04-09 21:47 :00 No [id number] 1200mg [facility] casirivimab -imdevimab 1200 mg in 60 mL NS MINI-BAG 04-09 21:30: 00 04-09 21:47 :00 No [id number] 1200mg 1,200 mg, IV Infusion, ONCE, Administer over 20 Minutes, Flori 04/09/21 at 1630, For 1 dose
Ad rubber tubing backer as an IV infusion via pump or gravity through an intravenou s line containing a sterile, in-line or add-on 0.2-micron polyethers ulfone (PES) filter. Stable 36 hours refrigerat ed; 4 hours at room temperatur e.
[facility] casirivimab -imdevimab (REGEN-COV (EUA)) 1,200 mg in NaCl 0.9% (NS) 60 mL IV infusion 04-09 21:15: 00 04-09 20:22 :28 No [id number] 1200mg [facility] iopamidol (ISOVUE 370-500 mL) injection 100 mL 04-07 20:09: 00 04-07 20:10 :00 No [id number] 100mL 100 mL, Intravenou s, ONCE, 1 dose, 04/07/21 at 1530, Routine [facility] chlorphenir amine 4 mg tablet 04-07 00:00: 00 Yes [id number] 4mg Take 1 tablet by mouth every 6 (six) hours as needed for Allergies or Runny nose. [facility] calcium/mag nesium/zinc (CALCIUM-MA GNESUIUM-ZI NC) 333-133-5 mg Tab 04-07 00:00: 00 Yes [id number] 1{each} Take 1 Each by mouth daily. [facility] benzonatate 100 mg capsule 04-07 00:00: 00 Yes [id number] 100mg Take 1 capsule by mouth 3 (three) times daily as needed for Cough. [facility] ondansetron 4 mg disintegrat ing tablet 04-07 00:00: 00 Yes [id number] 4mg Take 1 tablet by mouth every 8 (eight) hours as needed for Nausea and Vomiting (N/V). [facility] vitamin D3-folic acid 125 mcg (5,000 unit)-1 mg Tab 04-07 00:00: 00 05-08 04:59 :00 No [id number] 1{tbl} Take 1 tablet by mouth daily for 30 days. [facility] Vital Signs Vital Name Observation Time Observation Value Comments Brandon saldivar Systolic blood pressure 2021-04-09 22:32:00 143 mm[Hg] [facility] Diastolic blood pressure 2021-04-09 22:32:00 86 mm[Hg] [facility] Heart rate 2021-04-09 22:32:00 107 /min [facility] Body temperature 2021-04-09 22:32:00 36.72 [facility] Oxygen saturation in Arterial blood by Pulse oximetry 2021-04-09 22:32:00 96 /min [facility] Respiratory rate 2021-04-09 21:30:00 20 /min [facility] Body height 2021-04-09 20:09:00 147.3 cm [facility] Body weight 2021-04-09 20:09:00 78.472 kg [facility] BMI 2021-04-09 20:09:00 36.16 kg/m2 [facility] Systolic blood pressure 2021-04-07 21:00:00 138 mm[Hg] [facility] Diastolic blood pressure 2021-04-07 21:00:00 102 mm[Hg] [facility] Heart rate 2021-04-07 21:00:00 116 /min [facility] Respiratory rate 2021-04-07 21:00:00 23 /min [facility] Oxygen saturation in Arterial blood by Pulse oximetry 2021-04-07 21:00:00 100 /min [facility] Body temperature 2021-04-07 19:05:00 37.94 [facility] Body height 2021-04-07 19:05:00 147.3 cm [facility] Body weight 2021-04-07 19:05:00 78.926 kg [facility] BMI 2021-04-07 19:05:00 36.37 kg/m2 [facility] Procedures Procedure Date / Time Performed Performing Clinicia n Source [id number] 2021-05-21 00:00:[address] [facility] [id number] 2021-05-21 00:00:[address] [facility] [id number] 2021-05-21 00:00:[address] [facility] CT CHEST PULMONARY ANGIOGRAM 2021-04-07 20:17:19 [facility] URINALYSIS 2021-04-07 20:05:00 [facility] TROPONIN I 2021-04-07 20:02:00 [facility] COMP. METABOLIC PANEL ([id number]) 2021-04-07 20:02:00 [facility] CBC WITH DIFF 2021-04-07 20:02:00 [facility] N-TERMINAL PRO-BNP 2021-04-07 20:02:00 [facility] NOTICE OF PRIVACY PRACTICES 2021-04-07 18:41:00 Doctor Unassigned, [place] [facility] CONSENT/REFUSAL FOR DIAGNOSIS AND TREATMENT 2021-04-07 18:40:33 Doctor Unassigned, [place] [facility] Encounters Start Date/Time End Date/Time Encounter Type Admission Type Attending [facility] Care Facility Care Department Encounter ID Source 2024-09-25 15:37:02 Outpatient No, PCP CLS [facility] [id number] [place] [facility] 2023-11-03 12:00:00 2023-11-03 12:00:00 Outpatient Lidia Saunders [facility] [id number] [facility] 2022-10-21 12:00:00 2022-10-21 12:00:00 Outpatient Lidia Saunders [facility] [id number] [facility] 2022-05-05 14:40:00 2022-05-05 14:40:00 Outpatient MICKEY WATKINS [facility] [id number] [facility] 2022-05-01 16:40:00 2022-05-01 16:40:00 Outpatient SINCERE NEFF [facility] [id number] [facility] 2021-09-11 15:33:00 2021-09-11 15:33:00 Outpatient Luigi Todd [facility] [id number] [facility] 2021-05-21 14:45:00 2021-05-22 11:54:00 Inpatient LEXII Meyers Todd [facility] [id number] [facility] 2021-04-28 00:00:00 2021-04-28 00:00:00 Outpatient [facility] TY[facility]- [address] [facility] 2021-04-09 15:00:00 2021-04-09 15:00:00 Outpatient KADEEM GARCIA [facility] [id number] [facility] 2021-04-09 13:03:47 2021-04-09 14:03:47 Nurse Visit Therapy, Adc Covid Infusion Kadeem Piper A [facility] [id number] [facility] 2021-04-07 14:08:00 2021-04-07 16:44:00 Emergency LaresJuarez [facility] [id number] [facility] 2021-04-07 13:39:00 2021-04-07 13:39:00 Emergency X [facility] ERT [id number] [facility] 2021-04-01 08:00:00 2021-04-01 08:00:00 Outpatient Todd Glover [facility] [id number] [facility] 2021-03-31 00:00:00 2021-03-31 00:00:00 Outpatient HAILEY HUNTLEY [facility] [id number] [facility] Results Test Description Test Time Test Comments Results Result Co mments Source [id number] 20:47:00* Test Item Value Reference Range Interpretation Comme nts GLUBED (test code = GLUBED) 149 MG/DL 70-105 H UR HCG [id number] 09:05:00* Test Item Value Reference Range Interpretation Comme nts UR HCG QUAL (test code = HCGQLU) NEGATIVE NEGATIVE CT CHEST PULMONARY [id number] 21:15:341. No evidence of acute or chronic pulmonary embolism through the level ofthe subsegmental branches. 2. Multiple bilateral small areas of groundglass and consolidativeopacities consistent with the known diagnosis of COVID 19 pneumonia. Preliminary Report Dictated by Resident: Jay Valdez MD., have reviewed this study and agree [...] reviewed this study and agree with theabove report.[facility] 20:46:24 * Test Item Value Reference Range Interpretation Comme nts APPEARANCE (test code = 2637992358) Hazy Clear A COLOR (test code = 1992408944) Renea Yellow A PH (test code = 2029373081) 4.8-8.0 SP GRAVITY (test code = 8935659519) 1.003-1.030 GLU U QUAL (test code = 0721020699) Normal Normal BLOOD (test code = 4655109779) 1+ Negative A KETONES (test code = 6352484557) 80 mg/dL Negative A PROTEIN (test code = 2887-8) 100 mg/dL Negative A UROBILIN (test code = 0137176398) 4.0 mg/dL Normal A BILIRUBIN (test code = 7534590231) Negative Negative NITRITE (test code = 4874370513) Negative Negative LEUK SEAN (test code = 3035530906) Negative Negative RBC/HPF (test code = 8840129458) See_Comment [Automated [employer]] The system which generated this result transmitted reference range: 0 - 3 HPF. The reference range was not used to interpret this result as normal/abnormal. WBC/HPF (test code = 1663655161) See_Comment [[employer]ated [employer] ge] The system which generated this result transmitted reference range: 0 - 5 HPF. The reference range was not used to interpret this result as normal/abnormal. BACTERIA (test code = 4337670745) Negative Negative MUCOUS (test code = 6705673165) Moderate Negative LPF A SQ EPITH (test code = 7897664100) HPF Lab Interpretation (test code = 06257-9) Abnormal [facility] [id number] 20:41:50* Test Item Value Reference Range Interpretation Comments TROPONIN I (test code = 9397039328) 0.002 ng/mL See_Comment [Automated message] The system [...] of biotin. Lab Interpretation (test code = 78046-5) [facility] (67250[facility]2021-04-07 20:37:33* Test Item Value Reference Range Interpretation Comme nts NA (test code = 6233693861) 139 mmol/L 135-145 K (test code = 6377827728) 3.5 mmol/L 3.5-5.0 CL (test code = 9095796906) 104 mmol/L 98-108 CO2 TOTAL (test code = 7981460846) 23 mmol/L 23-31 AGAP (test code = 2622403116) 2-16 BUN (test code = 6812074409) 10 mg/dL 7-23 GLUCOSE (test code = 3684364201) 104 mg/dL 70-110 CREATININE (test code = 6849891196) 0.67 mg/dL 0.50-1.04 TOTAL BILI (test code = 7597467465) 0.4 mg/dL 0.1-1.1 CALCIUM (test code = 5011795940) 9.5 mg/dL 8.6-10.6 T PROTEIN (test code = 1995130627) 8.5 g/dL 6.3-8.2 H ALBUMIN (test code = 8459905008) 4.7 g/dL 3.5-5.0 ALK PHOS (test code = 8633348152) 72 U/L 34-122 ALTv (test code = 1742-6) 66 U/L 5-35 H AST(SGOT) (test code = 1950514608) 82 U/L 13-40 H eGFR (test code = 6809221402) mL/min/1.73m2 JUANJO (test code = JUANJO) Association [...] imaging tests). Lab Interpretation (test code = 56126-3) [facility]normal [id number] 20:37:28* Test Item Value Reference Range Interpretation Comme nts NT-proBNP (test code = 4836268045) 25 pg/mL See_Comment [Automated message] The system which generated this result transmitted reference range: <=125. The reference range was not used to interpret this result as normal/abnormal. JUANJO (test code = JUANJO) Biotin has been reported to cause a negative bias, interpret results relative to patient's use of biotin. Lab Interpretation (test code = 17560-2) Normal [facility] WITH [id number] 20:25:06* Test Item Value Reference Range Interpretation Comme nts WBC (test code = 6690-2) See_Comment [Automated [employer]] The system which generated this result transmitted reference range: 4.30 - 11.10 10*3/?L. The reference range was not used to interpret this result as normal/abnormal. RBC (test code = 789-8) See_Comment H [Automated [employer]] The system which generated this result transmitted [...] 33.8 g/dL 31.6-35.1 RDW-SD (test code = 40745-8) 40.9 fL 39.0-49.9 RDW-CV (test code = 788-0) 12.7 % 12.0-15.5 PLT (test code = 777-3) See_Comment [[employer] ge] The system which generated this result transmitted reference range: 166 - 358 10*3/?L. The reference range was not used to interpret this result as normal/abnormal. MPV (test code = 27562-2) 10.0 fL 9.5-12.9 NRBC/100 WBC (test code = 4888314386) See_Comment [Automated [employer]] The system which generated this result transmitted reference range: 0.0 - 10.0 /100 WBCs. The reference range was not used to interpret this result as normal/abnormal. NRBC x10^3 (test code = 5868836467) <0.01 See_Comment [[employer] ge] The system which generated this result transmitted reference range: 10*3/?L. The reference range was not used to interpret this result as normal/abnormal. GRAN MAT (NEUT) % (test code = 770-8) 73.2 % IMM GRAN % (test code = 0059126101) 0.20 % LYMPH % (test code = 736-9) 20.5 % MONO % (test code = 5905-5) 5.9 % EOS % (test code = 713-8) 0.0 % BASO % (test code = 706-2) 0.2 % GRAN MAT x10^3(ANC) (test code = 3783458546) 4.36 10*3/uL 1.88-7.09 IMM GRAN x10^3 (test code = 1826829582) <0.03 0.00-0.06 LYMPH x10^3 (test code = 731-0) 1.22 10*3/uL 1.32-3.29 L MONO x10^3 (test code = 742-7) 0.35 10*3/uL 0.33-0.92 EOS x10^3 (test code = 711-2) <0.03 0.03-0.39 L BASO x10^3 (test code = 704-7) <0.03 0.01-0.07 Lab Interpretation (test code = 28664-8) [facility]normal [facility] [id number] 14:43:00* Test Item Value Reference Range Interpretation Comme nts Coronavirus 2019 nCoV Bedside (test code = FYEAT53LDTBQ) Positive Negative A Critical Value reported toFirst Name: DIANE Last Name: Klaudia (DR. MEYERS OFFICE)RESULTS READ BACK AND VERIFIEDby [id number], on 04/01/21, @ 1435. UR HCG [id number] 14:17:00* Test Item Value Reference Range Interpretation Comme nts UR HCG QUAL (test code = HCGQLU) NEGATIVE NEGATIVE Notes Date/Time Note Provider Source 2021-04-01 14:02:00 [id number] [place] [address] PATIENT NAME: SYD MICHELLE ADMIT DATE: ACCOUNT NO: [id number] ROOM NO: AGE: 40 REPORT TYPE: eELECTROCARDIOGRAM SEX: F ADMITTING PHYSICIAN: Todd Meyers MD ATTENDING PHYSICIAN: Todd Meyers MD Order: [id number] Test Reason : SDS Test Date/Time Stamp: [...] ECGs available Confirmed by EDELMIRA STEVENS MD ([id number]) on 04/08/2021 8:25:42 AM Referred By: Todd Meyers Confirmed by:EDELMIRA STEVENS MD at 0825 PATIENT NAME: SYD MICHELLE [facility]"
[2024-11-08 21:23] LABS: Absolute Lymphocytes (CBC) 0.5 K/uL (0.7-4.9); Absolute Monocytes 0.2 K/uL (0.1-1.3); Absolute Neutrophil 7.9 K/uL (1.8-8.0); Basophils % 0.4 % (0-1.3); Eosinophils % 0.1 % (0-4.4); Hematocrit 38.5 % (36.0-45.0); Hemoglobin 12.7 g/dL (12.0-15.0); Lymphocytes % 5.6 % (15.3-44.8); MCH 29.3 pg (27.0-35.0); MCHC 33.1 g/dL (32.0-36.0); MCV 88.6 fL (80-100); MPV 7.9 fL (7.6-11.3); Monocytes % 2.1 % (3.3-12.3); Neutrophils % 91.8 % (41.7-73.7); Platelets 319 thou/uL (152-406); RBC Red Blood Cell Count 4.34 M/uL (3.86-4.86); Red Cell Distribution Width 13.4 % (12.1-15.2)
[2024-11-08 21:38] LABS: Albumin 3.6 g/dL (3.4-5.0); Albumin/Globulin Ratio 0.9 (1.1-1.8); Anion Gap 5.8 mEq/L (5.0-15.0); Bilirubin Total 0.6 mg/dL (0.2-1.0); Globulin 3.9 g/dL (2.3-3.5); Potassium 3.8 mEq/L (3.5-5.1); Protein, Total 7.5 g/dL (6.4-8.2)
[2024-11-08] MEDS ORDERED: ONDANSETRON 4 MG/2 ML VIAL ONE (22:04)
[2024-11-08] MEDS ORDERED: MORPHINE 4 MG/ML SYR ONE (22:04)
[2024-11-08] MEDS ORDERED: FAMOTIDINE 20 MG/2 ML VIAL IV ONE (22:05)
[2024-11-08] MEDS ORDERED: NA CHLORIDE 0.9% 1,000 ML ONE (22:05)
[2024-11-08 22:07] LABS: Blood Morphology Comment NOT SEEN (NOT SEEN); Platelet Estimate ADEQ; White Blood Cell Scan OK (OK)
[2024-11-08 22:18] LABS: Specific Gravity > 1.030 (1.005-1.030)
[2024-11-08 22:23] LABS: Specific Gravity > 1.030 (1.005-1.030); Sqamous Epithelial 20-50 /HPF (None Seen); Urine Bacteria <20 /HPF (<20); Urine Bilirubin NEGATIVE (Negative); Urine Blood 1+ (Negative); Urine Clarity Extremely Turbid (Clear); Urine Color Yellow (Yellow); Urine Crystals Unidentified Few /HPF (None Seen); Urine Culture Reflex Order NOT NEEDED; Urine Glucose NEGATIVE (Negative); Urine Ketones 3+ (Negative); Urine Microscopic Reflex YN ORDER UMIC; Urine Mucus 4+ /HPF (None Seen); Urine Nitrite NEGATIVE (Negative); Urine Protein 1+ (Negative); Urine Urobilinogen Normal (Normal); Urine WBC Clump Occasional /HPF (None Seen); Urine Yeast (Budding) Occasional /HPF (None Seen); Urine pH 5.5 (5.0-7.0)
--- NOTE | 2024-11-09 00:34 | EDPHYS ---
Physician Documentation [facility] Name: Maru Khoury Age: 44 yrs Sex: Female : 1980 Arrival Date: 11/08/2024 Time: 18:28 Bed 10 Private MD: ED Physician Javi Butler HPI: 11/08 20:25 This 44 yrs old Female presents to ER via Ambulatory with complaints of cp Abdominal Pain, Vomiting/Diarrhea. 20:25 The patient presents with abdominal pain. cp 20:25 Onset: The symptoms/episode began/occurred today. The symptoms radiate to back. cp 20:25 Associated signs and symptoms: Pertinent positives: nausea, vomiting, and diarrhea, cp Pertinent negatives: chest pain, constipation, fever, vomiting blood. Severity of pain: in the emergency department the pain is unchanged despite home interventions. 20:25 Patient reports HX of gastric sleeve surgery. cp Historical: - PMHx: 19:41 Hypertension; br2 - PSHx: 19:41 section; Cholecystectomy; gastric sleeve; br2 - Immunization history:: Adult Immunizations up to date. - Infectious Disease History:: Denies. - Social history:: Smoking status: Patient denies any tobacco usage or history of. Patient uses alcohol, occasionally. street drugs, marijuana. ROS: 20:25 Constitutional: Positive for poor PO intake, Negative for body aches, chills, fever, cp 20:25 ENT: Negative for drainage from ear(s), ear pain, sore throat, difficulty swallowing, difficulty handling secretions, 20:25 Cardiovascular: Negative for chest pain, palpitations, 20:25 Respiratory: Negative for cough, shortness of breath, wheezing, 20:25 Abdomen/GI: Positive for abdominal pain, nausea, vomiting, and diarrhea, anorexia, Negative for constipation, hematemesis, black/tarry stool, rectal bleeding, 20:25 Back: Positive for radiated pain, 20:25 Neuro: Negative for altered mental status, 20:25 All other systems are negative, cp Exam: 20:30 Constitutional: The patient appears in no acute distress, alert, awake, cp non-diaphoretic, non-toxic, well developed, well nourished, uncomfortable, 20:30 Head/Face: Normocephalic, atraumatic. cp 20:30 Eyes: Periorbital structures: appear normal, Conjunctiva: normal, no exudate, no injection, Sclera: no appreciated abnormality, Lids and lashes: appear normal, bilaterally, 20:30 ENT: External ear(s): are unremarkable, Nose: is normal, Mouth: Lips: moist, Oral mucosa: moist, Posterior pharynx: Airway: no evidence of obstruction, patent, erythema, is not appreciated, 20:30 Chest/axilla: Inspection: normal, 20:30 Cardiovascular: Rate: normal, Rhythm: regular, Edema: is not appreciated, JVD: is not appreciated, 20:30 Respiratory: the patient does not display signs of respiratory distress, Respirations: normal, no use of accessory muscles, no retractions, labored breathing, is not present, Breath sounds: are clear throughout, no decreased breath sounds, no stridor, no wheezing, 20:30 Abdomen/GI: Inspection: abdomen appears normal, Bowel sounds: active, all quadrants, Palpation: soft, in all quadrants, moderate abdominal tenderness, in the epigastric area, right upper quadrant and left upper quadrant, rebound tenderness, is not appreciated, voluntary guarding, is elicited in the epigastric area, 20:30 Back: CVA tenderness, is absent, 20:30 Skin: no rash present. 20:30 Neuro: Orientation: to person, place \T\ time. Mentation: is normal, Motor: moves all fours, strength is normal, Sensation: no obvious gross deficits, Vital Signs: 19:39 BP 137 / 101; Pulse 77; Resp 18; Temp 97.9(TE); Pulse Ox 99% on R/A; Weight 62.14 kg; br2 Height 4 ft. 11 in. ; Pain 5/10; 19:39 Body Mass Index 27.67 (62.14 kg, 149.86 cm) br2 19:39 Pain Scale: Adult br2 MDM: 19:44 Medical Screening Exam initiated cp 21:00 Differential diagnosis: Nonspecific abd pain, gastritis, viral gastroenteritis, cp gastroenteritis. 11/09 00:32 Data reviewed: vital signs, nurses notes, lab test result(s), radiologic studies, CT cp scan. 00:32 I considered the following discharge prescriptions or medication management in the emergency department Medications were administered in the Emergency Department. See MAR. Care significantly affected by the following chronic conditions: Hypertension. Counseling: I had a detailed discussion with the patient and/or guardian regarding the historical points, exam findings, and any diagnostic results supporting the discharge/admit diagnosis, lab results, radiology results, to return to the emergency department if symptoms worsen or persist or if there are any questions or concerns that arise at home. Response to treatment: the patient's symptoms have mildly improved after treatment, nausea improved, abdominal pain improved. will discharge to home for continued monitoring, and as a result, I will discharge patient. Special discussion: Based on the patient's Hx, exam, and Dx evaluation, there is no indication for emergent surgery or inpatient Tx. It is understood by the patient/guardian that if the Sx's persist or worsen they need to return immediately for re-evaluation. 16:43 Data reviewed: vital signs, nurses notes. ED course: felt improved . sp4 16:45 Consideration of Admission/Observation Escalation of care including sp4 admission/observation considered. ED course: He has revealed mild enteritis. 11/08 20:23 Order name: CBC with Diff; Complete Time: 23:31 cp 11/08 23:35 Interpretation: Reviewed. cp 11/08 20: Order name: CMP; Complete Time: 21:50 cp 11/09 00:25 Interpretation: Normal except: CL 108; GLUC 107; GLOB 3.9; A/G 0.9. cp 11/08 20:23 Order name: Lipase; Complete Time: 21:50 cp 11/09 00:25 Interpretation: Reviewed. cp 11/08 20:23 Order name: Test, Urine; Complete Time: 23:31 cp 11/08 20:23 Order name: Urinalysis w/ reflexes; Complete Time: 23:31 cp 11/09 00:25 Interpretation: Normal except: [facility] Extremely Turbid; Urine SG > 1.030; UKET 3+; UBLD cp 1+; UPROT 1+; URBC 5-10; SQEPI 20-50; MUCUS 4+; UWBC Clump Occasional; BYST Occasional. 11/08 22:07 Order name: CBC Smear Scan; Complete Time: 23:31 EDMS 11/08 22:05 Order name: CT Abd/Pelvis - IV Contrast Only; Complete Time: 16:43 cp 11/08 20:23 Order name: IV Saline Lock; Complete Time: 21:13 cp 11/09 19:23 Order name: Labs collected and sent; Complete Time: 21:14 cp 11/09 00:20 Order name: PO challenge; Complete Time: 00:48 cp Administered Medications: 11/08 22:18 Drug: Ondansetron IVP 4 mg IVP once; over 2 minutes Route: IVP; Site: left antecubital; br2 22:18 Drug: Famotidine IVP 20 mg IVP once; dilute with 10 mL 0.9% NaCl; give over 2 minutes br2 Route: IVP; Site: left antecubital; 22:18 Drug: morphine IVP or IV 4 mg IVP once over 4 mins Route: IVP; Infused Over: 4 mins; br2 Site: left antecubital; 22:18 Drug: NS 0.9% IV 1000 ml IV at 1000 ml once; to be given as a bolus over 60 minutes br2 Route: IV; Rate: 1000 ml; Site: left antecubital; 11/09 01:10 Drug: Promethazine PO 25 mg PO once Route: PO; ha1 01:21 Not Given (Physician Discretion): [id number] mg IM once ha1 Disposition: 16:42 Co-signature as Attending Physician, Javi Butler MD I agree with the assessment sp4 and plan of care. I reviewed the patient's care provided by Advanced Practice Provider \T\ agree w/ the diagnosis \T\ care plan. I personally saw the pt \T\ performed a substantive portion of the visit, incldng all aspects of the (History/Exam/Medical Decision Making). 16:45 Chart complete. sp4 Disposition Summary: 11/09/24 00:33 Discharge Ordered Notes: Location: Home cp Problem: new cp Symptoms: have improved cp Condition: Stable cp Diagnosis - Nausea with vomiting, unspecified cp - Diarrhea, unspecified cp - Upper abdominal pain, unspecified cp Followup: cp - With: Private Physician - When: 2 - 3 days - Reason: Worsening of condition Discharge Instructions: - Discharge Summary Sheet cp - Abdominal Pain, Adult cp - Food Choices to Help Relieve Diarrhea, Adult cp - Diarrhea, Adult cp - Nausea and Vomiting, Adult cp Forms: - Medication Reconciliation Form cp - Antibiotic Education cp - Prescription Opioid Use cp - Patient Portal Instructions cp - Leadership Thank You Letter cp Prescriptions: - Reglan 10 mg Oral Tablet - take 1 tablet ORAL route every 6 hours take 30 minutes before meals and at bedtime; 20 tablet; Refills: 0, Product Selection Permitted Signatures: Dispatcher [employer] EDND Garo Mccartney PA PA cp Ayala, Heidy RN RN ha1 Javi Butler MD MD sp4 Kirti Bhakta RN RN br2 Corrections: (The following items were deleted from the chart) 11/08 22:05 22:05 Abdomen Pelvis W Con+CT.RAD.BRZ ordered. EDND EDMS 11/09 23:54 16:42 Positive abdominal pain nausea vomiting diarrhea. sp4 cp 23:54 16:42 Constitutional: This is a well developed, well nourished patient who is awake, cp alert, and in no acute distress. Head/Face: Normocephalic, atraumatic. Eyes: Pupils equal round and reactive to light, extra-ocular motions intact. Lids and lashes normal. Conjunctiva and sclera are not injected. Cornea within normal limits. Periorbital areas with no swelling, redness, or edema. ENT: Nares patent. No nasal discharge, no septal abnormalities noted. Tympanic membranes are normal and external auditory canals are clear. Oropharynx with no redness, swelling, or masses, exudates, or evidence of obstruction, uvula midline. Mucous membranes moist. Neck: Trachea midline, no thyromegaly or masses palpated, and no cervical lymphadenopathy. Supple, full range of motion without nuchal rigidity, or vertebral point tenderness. Chest/axilla: Normal chest wall appearance and motion. Nontender with no deformity. No lesions are appreciated. Cardiovascular: Regular rate and rhythm with a normal S1 and S2. No gallops, murmurs, or rubs. Normal PMI, no JVD. No pulse deficits. Respiratory: Lungs have equal breath sounds bilaterally, clear to auscultation and percussion. No rales, rhonchi or wheezes noted. No increased work of breathing, no retractions or nasal flaring. Abdomen/GI: Soft, with normal bowel sounds. No distension or tympany. No guarding or rebound. No evidence of tenderness throughout. Back: No spinal tenderness. No costovertebral tenderness. Skin: Warm, dry with normal turgor. Normal color with no rashes, no lesions, and no evidence of cellulitis. MS/ Extremity: Pulses equal, no cyanosis. Neurovascular intact. Full, normal range of motion. Neuro: Awake and alert, GCS 15, oriented to person, place, time, and situation. Cranial nerves II-XII grossly intact. Motor strength 5/5 in all extremities. Sensory grossly intact. Psych: Awake, alert, with orientation to person, place and time. Behavior, mood, and affect are within normal limits sp4 23:54 16:42 GCS: 15, sp4 cp 23:57 16:42 Constitutional: Negative for fever, chills, and weight loss, abdominal pain, cp positive nausea, positive diarrhea sp4 23:57 16:42 All other systems are negative, sp4 cp 11/10 00:00 03 20:25 All other systems are negative, cp cp 11/10 00:01 03 16:43 Differential diagnosis: Nonspecific abd pain, gastritis, viral cp gastroenteritis, gastroenteritis, sp4
--- NOTE | 2024-11-09 00:34 | ER ---
Nurse's Notes [facility] Name: Maru Khoury Age: 44 yrs Sex: Female : 1980 Arrival Date: 11/08/2024 Time: 18:28 Bed 10 Private MD: Diagnosis: Nausea with vomiting, unspecified;Diarrhea, unspecified;Upper abdominal pain, unspecified Presentation: 11/08 19:39 Chief complaint: Patient states: N/V/D UPPER AB PAIN (INTERMITTENT/SHARP) UNABLE TO br2 KEEP ANYTHING DOWN. DENIES FEVER. Coronavirus screen: Client denies travel out of the [place] in the last 14 days. Ebola Screen: Patient denies exposure to infectious person. Initial Sepsis Screen: Does the patient meet any 2 criteria? No. Patient's initial sepsis screen is negative. Does the patient have a suspected source of infection? No. Patient's initial sepsis screen is negative. Risk Assessment: Do you want to hurt yourself or someone else? Patient reports no desire to harm self or others. Onset of symptoms was November 08, 2024 at 06:30. 19:39 Method Of Arrival: Ambulatory br2 19:39 Acuity: SB 3 br2 Triage Assessment: 19:41 General: Appears in no apparent distress. comfortable, Behavior is calm, cooperative. br2 Pain: Complains of pain in epigastric area, right upper quadrant and left upper quadrant Pain does not radiate. Pain currently is 5 out of 10 on a pain scale. GI: Reports upper abdominal pain, diarrhea, nausea, vomiting. Historical: - PMHx: 19:41 Hypertension; br2 - PSHx: 19:41 section; Cholecystectomy; gastric sleeve; br2 - Immunization history:: Adult Immunizations up to date. - Infectious Disease History:: Denies. - Social history:: Smoking status: Patient denies any tobacco usage or history of. Patient uses alcohol, occasionally. street drugs, marijuana. Screenin:41 [facility] ED Fall Risk Assessment (Adult) History of falling in the last 3 months, br2 including since admission No falls in past 3 months (0 pts) Confusion or Disorientation No (0 pts) Intoxicated or Sedated No (0 pts) Impaired Gait No (0 pts) Mobility Assist Device Used No (0 pt) Altered Elimination No (0 pt) Score/Fall Risk Level 0 - 2 = Low Risk Oriented to surroundings. Abuse screen: Denies threats or abuse. Denies injuries from another. Nutritional screening: No deficits noted. Tuberculosis screening: No symptoms or risk factors identified. Assessment: 19:39 GI: Pt is actively vomiting bile, Abd is soft X 4 quads Abdomen is tender to palpation br2 Reports. 22:25 Reassessment: SEE TRIAGE ASSESSMENT. br2 11/09 01:08 Reassessment: Patient and/or family updated on plan of care and expected duration. Pain ha1 level reassessed. Patient is alert, oriented x 3, equal unlabored respirations, skin warm/dry/pink. Patient denies pain at this time. Patient states feeling better. Patient states symptoms have improved. Vital Signs: 11/08 19:39 BP 137 / 101; Pulse 77; Resp 18; Temp 97.9(TE); Pulse Ox 99% on R/A; Weight 62.14 kg; br2 Height 4 ft. 11 in. ; Pain 5/10; 19:39 Body Mass Index 27.67 (62.14 kg, 149.86 cm) br2 19:39 Pain Scale: Adult br2 ED Course: 18:32 Patient arrived in ED. mr 19:17 Garo Mccartney PA is PHCP. cp 19:17 Ivan Garber MD is Attending Physician. cp 19:41 Triage completed. br2 19:41 Patient has correct armband on for positive identification. Placed in gown. Bed in low br2 position. Call light in reach. Side rails up X 1. Provided Education on: PLAN OF CARE. 21:14 CBC with Diff Sent. ha1 21:14 CMP Sent. ha1 21:14 Lipase Sent. ha1 21:14 Inserted saline lock: 20 gauge in left antecubital area, using aseptic technique. Blood af3 collected. Flushed with 10 mL NS. 21:17 Kirti Bhakta, KEAGAN is Primary Nurse. br2 22:14 Urinalysis w/ reflexes Sent. ha1 22:14 Test, Urine Sent. ha1 22:16 Javi Butler MD is Attending Physician. cp 22:53 CT Abd/Pelvis - IV Contrast Only In Process Unspecified. EDMS 11/09 01:07 No provider procedures requiring assistance completed. IV discontinued, intact, ha1 bleeding controlled, No redness/swelling at site. Pressure dressing applied. 01:10 Primary Nurse role handed off by Kirti Bhakta RN rv1 Administered Medications: 11/08 22:18 Drug: Ondansetron IVP 4 mg IVP once; over 2 minutes Route: IVP; Site: left antecubital; br2 22:18 Drug: Famotidine IVP 20 mg IVP once; dilute with 10 mL 0.9% NaCl; give over 2 minutes br2 Route: IVP; Site: left antecubital; 22:18 Drug: morphine IVP or IV 4 mg IVP once over 4 mins Route: IVP; Infused Over: 4 mins; br2 Site: left antecubital; 22:18 Drug: NS 0.9% IV 1000 ml IV at 1000 ml once; to be given as a bolus over 60 minutes br2 Route: IV; Rate: 1000 ml; Site: left antecubital; 11/09 01:10 Drug: Promethazine PO 25 mg PO once Route: PO; ha1 01:21 Not Given (Physician Discretion): [id number] mg IM once ha1 Medication: 01:07 VIS not applicable for this client. ha1 Outcome: 00:33 Discharge ordered by . cp 01:07 Discharged to home via wheelchair, with family, ha1 01:07 Condition: stable 01:07 Discharge instructions given to patient, Instructed on discharge instructions, follow up and referral plans. medication usage, Demonstrated understanding of instructions, follow-up care, medications, Prescriptions given X 1, 01:08 Patient left the ED. ha1 01:21 Patient left the ED. ha1 Signatures: Dispatcher [employer] EDCA Obdulia Maddox, Joel Reg mr Garo Mccartney PA PA cp Ayala, Heidy, RN RN ha1 Aimee Pereyra rv1 Kirti Bhakta RN RN br2 Anjana Mast3
[2024-11-09] MEDS ORDERED: PROMETHAZINE 25 MG TABLET ONE (01:06)
[2024-11-09 01:17] VITALS: BP 137/101; TEMP 97.9; O2SAT 99
--- NOTE | 2024-11-09 03:06 | RAD REPORT ---
EXAM: CT Abdomen and Pelvis With Intravenous Contrast CLINICAL HISTORY: The patient is 44 years old and is Female; Abd pain;Nausea / vomiting TECHNIQUE: Axial computed tomography images of the abdomen and pelvis with intravenous contrast. Sagittal an d coronal reformatted images were created and reviewed. This CT exam was performed using one or more of the following dose reduction techniques: automated exposure control, adjustment of the mA a nd/or kV according to patient size, and/or use of iterative reconstruction technique. COMPARISON: CT June 25, 2024 FINDINGS: LUNG BASES: Unremarkable. No mass. No consolidation. MEDIASTINUM: A small hiatal hernia is present. ABDOMEN: LIVER: Hepatic granuloma present. Fatty infiltration of the falciform is noted. The liver is othe rwise homogeneous. GALLBLADDER AND BILE DUCTS: Surgical clips are present in the right upper quadrant, consistent wi th previous cholecystectomy. PANCREAS: No ductal dilation. No mass. SPLEEN: Unremarkable. ADRENALS: Unremarkable. No mass. KIDNEYS AND URETERS: Unremarkable. The kidneys enhance symmetrically. No obstructing renal or ure teral calculus is seen. No hydronephrosis or hydroureter. No perinephric fluid or stranding. STOMACH AND BOWEL: Postsurgical change of the stomach is noted. The stomach is decompressed. The small bowel is relatively normal in caliber. Mild mucosal thickening involving a few small bowel loops in the left upper quadrant is present. Minimal stool is noted throughout the colon. There is no evidence of obstruction. PELVIS: APPENDIX: The appendix is normal in caliber without surrounding inflammation. BLADDER: The bladder is incompletely distended. REPRODUCTIVE: 3 cm left ovarian cyst is present. No follow-up imaging is recommended. The uterus and right ovary are normal. ABDOMEN and PELVIS: INTRAPERITONEAL SPACE: Unremarkable. No free air. No significant fluid collection. BONES/JOINTS: No acute fracture. SOFT TISSUES: The soft tissues are normal. VASCULATURE: Calcified phleboliths are present within the pelvis. No abdominal aortic aneurysm. LYMPH NODES: Unremarkable. No enlarged lymph nodes. IMPRESSION: Findings suggest mild enteritis involving a few small bowel loops in the left upper quadrant. There is no evidence of obstruction. Electronically signed by: Chantelle Duenas MD 11/09/2024 12:16 AM CDT RP Due to temporary technical issues with the PACS/Gynzy reporting system, reports are being isaac d by the in-house radiologist without review as a courtesy to ensure prompt reporting the interpreting radiologist is fully responsible for the content of the report. Transcribed Date/Time: 11/09/2024 3:05 AM
== END 2024-11-09 01:21 | disposition home or self-care (01) ==
LOC: ER 18:28
DX: R11.2 Nausea with vomiting, unspecified (principal); R19.7 Diarrhea, unspecified; R10.13 Epigastric pain; I10 Essential (primary) hypertension
CPT/HCPCS: 85025; 81001; 36415; 81025; 83690; 80053; 74177; 96375; 96374; 99284; Q9967; Q0169; J2405; J7030

== ENCOUNTER 2025-05-11 20:22 | Emergency (ER) | payer BC ==
--- OUTSIDE RECORDS SUMMARY | 2025-05-11 20:27 | XMS REPORT | Continuity of Care Document ---
Author Name Unknown Address [address] [facility] [address] [place] [address] [facility] Address [address] [facility] [address] [place] [address] Support Name Relationship Address Phone NO, CONTACT OT [address] [place] [address] NO, CONTACT OT [address] [place] [address] DENIZ MICHELLE [address] [place] [address] DENIZ [address] [address], [place] [address] L, [place] [address] DENIZ MICHELLE SPOU [address] [place] [address] DENIZ MICHELLE Unknown Unavailable Care Team Providers Care Orange Picker Name Role Phone QUENTIN SANTOS Primary Care Physicia n Unavailable No, PCP Attending Clinician Unavailable Lidia Trevizo Attending Clinician UnavailMICKEY Montanez Attending Clinician Unavailable SINCERE MCCLENDON Attending Clinician Unavailable Todd Meyers Attending Clinician Unavailable KADEEM PIPER Attending Clinician Unavailable Therapy, Adc Covid Infusion Attending Clinician Unavailable Kadeem Piper MD Attending Clinician [phone] Juarez Lares DO Attending Clinician [phone] HAILEY LAIRD Attending Clinician Unavailable Lidia Trevizo Admitting Clinician UnavailTodd Wilson Admitting Clinician Unavailable Physician, No Primary or Family Admitting Clinic gerson Unavailable Payers Payer Name Policy Type Policy Number Effective Date Expirati on Date Source [facility] [id number] 2020 00:00:00 Problems Condition Name Condition Details Condition Category Status Onset Date Resolution Date Last Treatment Date Treating Clinician Comments Source No known active problems No known active problems Disease [facility] Allergies, Adverse Reactions, Alerts Allergy Name Allergy Type Status Severity Reaction(s) Onset Date Inactive Date Treating Clinician Comments Source Ibuprofe n Propensi ty to adverse reaction s Active Other - See comments 04-07 00:00: [address] [facility] Lisinopr il Propensi ty to adverse reaction s Active Cough 04-07 00:00: 00 [facility] IBUPROFE N DRUG INGREDI Active Other-Cmnt 04-07 00:00: 00 [facility] LISINOPR IL DRUG INGREDI Active COUGH 04-07 00:00: 00 [facility] ibuprofe n DA Active U ELEVATES BLOOD PRESSURE 04-01 00:00: 00 [facility] [place] No Known Allergie s DA Active U 0 8 00:00: 00 [facility] No Known Allergie s DA Active U 0 04-01 00:00: 00 [facility] ibuprofe n DA Active U 04-01 00:00: 00 [facility] NO KNOWN ALLERGIE S Drug Class Active [facility] Social History Social Habit Start Date Stop Date Quantity Comments Source Exposure to SARS-CoV-2 (event) Yes [facility] acute hospital Sex Assigned At 1980 00:00:00 1980 00:00:00 [facility] Smoking Status Start Date Stop Date Source Unknown if ever smoked [facility] Medications Ordered Medication Name Filled Medication Name Start Date Stop Date Current Medication? Ordering Clinician Indication Dosage Frequency Signature (SIG) Comments Components Source casirivimab -imdevimab 1200 mg in 60 mL NS MINI-BAG 04-09 21:30: 00 04-09 21:47 :00 No [id number] 1200mg [facility] casirivimab -imdevimab 1200 mg in 60 mL NS MINI-BAG 04-09 21:30: 00 04-09 21:47 :00 No [id number] 1200mg 1,200 mg, IV Infusion, ONCE, Administer over 20 Minutes, Flori 04/09/21 at 1630, For 1 dose
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 Stable 36 hours refrigerat ed; 4 hours at room temperatur e.
[facility] casirivimab -imdevimab (REGEN-COV (EUA)) 1,200 mg in NaCl 0.9% (NS) 60 mL IV infusion 04-09 21:15: 00 04-09 20:22 :28 No [id number] 1200mg [facility] iopamidol (ISOVUE 370-500 mL) injection 100 mL 04-07 20:09: 00 04-07 20:10 :00 No [id number] 100mL 100 mL, Intravenou s, ONCE, 1 dose, 04/07/21 at 1530, Routine [facility] chlorphenir amine 4 mg tablet 04-07 00:00: 00 Yes [id number] 4mg Take 1 tablet by mouth every 6 (six) hours as needed for Allergies or Runny nose. [facility] calcium/mag nesium/zinc (CALCIUM-MA GNESUIUM-ZI NC) 333-133-5 mg Tab 04-07 00:00: 00 Yes [id number] 1{each} Take 1 Each by mouth daily. [facility] benzonatate 100 mg capsule 04-07 00:00: 00 Yes [id number] 100mg Take 1 capsule by mouth 3 (three) times daily as needed for Cough. [facility] ondansetron 4 mg disintegrat ing tablet 04-07 00:00: 00 Yes [id number] 4mg Take 1 tablet by mouth every 8 (eight) hours as needed for Nausea and Vomiting (N/V). [facility] vitamin D3-folic acid 125 mcg (5,000 unit)-1 mg Tab 04-07 00:00: 00 05-08 04:59 :00 No [id number] 1{tbl} Take 1 tablet by mouth daily for [address] [facility] Vital Signs Vital Name Observation Time Observation Value Comments S janna Systolic blood pressure 2021-04-09 22:32:00 143 mm[Hg] [facility] Diastolic blood pressure 2021-04-09 22:32:00 86 mm[Hg] [facility] Heart rate 2021-04-09 22:32:00 107 /min [facility] Body temperature 2021-04-09 22:32:00 36.72 [facility] Oxygen saturation in Arterial blood by Pulse oximetry 2021-04-09 22:32:00 96 /min [facility] Respiratory rate 2021-04-09 21:30:00 20 /min [facility] Body height 2021-04-09 20:09:00 147.3 cm [facility] Body weight 2021-04-09 20:09:00 78.472 kg [facility] BMI 2021-04-09 20:09:00 36.16 kg/m2 [facility] Systolic blood pressure 2021-04-07 21:00:00 138 mm[Hg] [facility] Diastolic blood pressure 2021-04-07 21:00:00 102 mm[Hg] [facility] Heart rate 2021-04-07 21:00:00 116 /min [facility] Respiratory rate 2021-04-07 21:00:00 23 /min [facility] Oxygen saturation in Arterial blood by Pulse oximetry 2021-04-07 21:00:00 100 /min [facility] Body temperature 2021-04-07 19:05:00 37.94 [facility] Body height 2021-04-07 19:05:00 147.3 cm [facility] Body weight 2021-04-07 19:05:00 78.926 kg [facility] BMI 2021-04-07 19:05:00 36.37 kg/m2 [facility] Procedures Procedure Date / Time Performed Performing Clinicia n Source [id number] 2021-05-21 00:00:00 MARRO.02 [facility] [id number] 2021-05-21 00:00:00 MARRO.02 [facility] [id number] 2021-05-21 00:00:00 MARRO.02 [facility] [address] CHEST PULMONARY ANGIOGRAM 2021-04-07 [facility] 2021-04-07 20:05:00 [facility] TROPONIN I 2021-04-07 20:02:00 [facility] COMP. METABOLIC PANEL ([id number]) 2021-04-07 20:02:00 Lares [facility] CBC WITH DIFF 2021-04-07 20:02:00 Lares [facility] N-TERMINAL PRO-BNP 2021-04-07 20:02:00 [facility] NOTICE OF PRIVACY PRACTICES 2021-04-07 18:41:00 Doctor Unassigned, [facility] CONSENT/REFUSAL FOR DIAGNOSIS AND TREATMENT 2021-04-07 18:40:33 Doctor Unassigned, [facility] Encounters Start Date/Time End Date/Time Encounter Type Admission Type Attending Clinicians Care Facility Care Department Encounter ID Source 2024-09-25 15:37:02 Outpatient No, PCP CLS [facility] [id number] [facility] 2024-11-08 08:00:00 2024-11-08 08:00:00 Outpatient Lidia Saunders HCAPM MARK [id number] [facility] 2023-11-03 12:00:00 2023-11-03 12:00:00 Outpatient Lidia Saunders HCAPM MARK [id number] [facility] 2022-10-21 12:00:00 2022-10-21 12:00:00 Outpatient Lidia Saunders HCABRANDON FLORES [id number] [facility] 2022-05-05 14:40:00 2022-05-05 14:40:00 [facility] [id number] [facility] 2022-05-01 16:40:00 2022-05-01 16:40:00 Outpatient [facility] [id number] [facility] 2021-09-11 15:33:00 2021-09-11 15:33:00 Outpatient Todd Meyers [facility] [id number] [facility] 2021-05-21 14:45:00 2021-05-22 11:54:00 Inpatient Todd Glover [facility] DAYS [id number] [facility] 2021-04-28 00:00:00 2021-04-28 00:00:00 Outpatient [facility] PENFHET[facility]J TY- 103 [facility] 2021-04-09 15:00:00 2021-04-09 15:00:00 Outpatient KADEEM [facility] [id number] [facility] 2021-04-09 13:03:47 2021-04-09 14:03:47 Nurse Visit Therapy, Adc Kadeem Dejesus [facility] [id number] [facility] 2021-04-07 14:08:00 2021-04-07 16:44:00 Emergency Juarez Lares [facility] [id number] [facility] 2021-04-07 13:39:00 2021-04-07 13:39:00 Emergency X [facility] [id number] [facility] 2021-04-01 08:00:00 2021-04-01 08:00:00 Outpatient Todd Glover [facility] DA[facility] [id number] [facility] 2021-03-31 00:00:00 2021-03-31 00:00:00 Outpatient [facility] [id number] [facility] Results Test Description Test Time Test Comments Results Result Co mments Source [id number] 20:47:00* Test Item Value Reference Range Interpretation Comme nts GLUBED (test code = GLUBED) 149 MG/DL 70-105 H UR HCG [id number] 09:05:00* Test Item Value Reference Range Interpretation Comme nts UR HCG QUAL (test code = HCGQLU) NEGATIVE NEGATIVE CT CHEST PULMONARY [id number] 21:15:341. No evidence of acute or chronic [...] reviewed this study and agree with theabove report.[facility] 20:46:24 * Test Item Value Reference Range Interpretation Comme nts APPEARANCE (test code = 1696363998) Hazy Clear A COLOR (test code = 2038364141) Renea Yellow A PH (test code = 1544688529) 4.8-8.0 SP GRAVITY (test code = 9768386676) 1.003-1.030 GLU U QUAL (test code = 9136777763) Normal Normal BLOOD (test code = 7912332550) 1+ Negative A KETONES (test code = 2437263371) 80 mg/dL Negative A PROTEIN (test code = 2887-8) 100 mg/dL Negative A UROBILIN (test code = 2688892660) 4.0 mg/dL Normal A BILIRUBIN (test code = 6177046400) Negative Negative NITRITE (test code = 1281392783) Negative Negative LEUK SEAN (test code = 2584211207) Negative Negative RBC/HPF (test code = 5652918039) See_Comment [[employer]ated [employer]] The system which generated this result transmitted reference range: 0 - 3 HPF. The reference range was not used to interpret this result as normal/abnormal. WBC/HPF (test code = 5135072564) See_Comment [[employer]] The system which generated this result transmitted reference range: 0 - 5 HPF. The reference range was not used to interpret this result as normal/abnormal. BACTERIA (test code = 8942725041) Negative Negative MUCOUS (test code = 4904504750) Moderate Negative LPF A SQ EPITH (test code = 0104327534) HPF Lab Interpretation (test code = 44019-7) [facility]normal [facility] [id number] 20:41:50* Test Item Value Reference Range Interpretation Comments TROPONIN I (test code = 5100557645) 0.002 ng/mL See_Comment [Automated message] The system [...] of biotin. Lab Interpretation (test code = 22422-9) Normal [facility]. METABOLIC PANEL (78606)2021-04-07 20:37:33* Test Item Value Reference Range Interpretation Comme nts NA (test code = 5848988018) 139 mmol/L 135-145 K (test code = 8483388812) 3.5 mmol/L 3.5-5.0 CL (test code = 9480338852) 104 mmol/L 98-108 CO2 TOTAL (test code = 6062754362) 23 mmol/L 23-31 AGAP (test code = 0899086986) 2-16 BUN (test code = 6579131631) 10 mg/dL 7-23 GLUCOSE (test code = 8084729974) 104 mg/dL 70-110 CREATININE (test code = 5424542350) 0.67 mg/dL 0.50-1.04 TOTAL BILI (test code = 0897073702) 0.4 mg/dL 0.1-1.1 CALCIUM (test code = 6571223171) 9.5 mg/dL 8.6-10.6 T PROTEIN (test code = 5433364508) 8.5 g/dL 6.3-8.2 H ALBUMIN (test code = 9900496036) 4.7 g/dL 3.5-5.0 ALK PHOS (test code = 7964560486) 72 U/L 34-122 ALTv (test code = 1742-6) 66 U/L 5-35 H AST(SGOT) (test code = 1534369854) 82 U/L 13-40 H eGFR (test code = 8660646563) mL/min/1.73m2 JUANJO (test code = JUANJO) Association [...] imaging tests). Lab Interpretation (test code = 06591-0) [facility]normal [facility] [id number] 20:37:28* Test Item Value Reference Range Interpretation Comme nts NT-proBNP (test code = 5755255364) 25 pg/mL See_Comment [Automated message] The system which generated this result transmitted reference range: <=125. The reference range was not used to interpret this result as normal/abnormal. JUANJO (test code = JUANJO) Biotin has been reported to cause a negative bias, interpret results relative to patient's use of biotin. Lab Interpretation (test code = 21083-0) Normal [facility] WITH [id number] 20:25:06* Test Item Value Reference Range Interpretation Comme nts WBC (test code = 6690-2) See_Comment [Automated [employer]] The system which generated this result transmitted reference range: 4.30 - 11.10 10*3/?L. The reference range was not used to interpret this result as normal/abnormal. RBC (test code = 789-8) See_Comment H [Automated [employer] ge] The system which generated this result [...] 33.8 g/dL 31.6-35.1 RDW-SD (test code = 88318-5) 40.9 fL 39.0-49.9 RDW-CV (test code = 788-0) 12.7 % 12.0-15.5 PLT (test code = 777-3) See_Comment [Automated [employer]] The system which generated this result transmitted reference range: 166 - 358 10*3/?L. The reference range was not used to interpret this result as normal/abnormal. MPV (test code = 33731-6) 10.0 fL 9.5-12.9 NRBC/100 WBC (test code = 2015312259) See_Comment [Automated [employer]] The system which generated this result transmitted reference range: 0.0 - 10.0 /100 WBCs. The reference range was not used to interpret this result as normal/abnormal. NRBC x10^3 (test code = 0709172318) <0.01 See_Comment [Automated [employer]] The system which generated this result transmitted reference range: 10*3/?L. The reference range was not used to interpret this result as normal/abnormal. GRAN MAT (NEUT) % (test code = 770-8) 73.2 % IMM GRAN % (test code = 5938882026) 0.20 % LYMPH % (test code = 736-9) 20.5 % MONO % (test code = 5905-5) 5.9 % EOS % (test code = 713-8) 0.0 % BASO % (test code = 706-2) 0.2 % GRAN MAT x10^3(ANC) (test code = 0529938697) 4.36 10*3/uL 1.88-7.09 IMM GRAN x10^3 (test code = 7774534861) <0.03 0.00-0.06 LYMPH x10^3 (test code = 731-0) 1.22 10*3/uL 1.32-3.29 L MONO x10^3 (test code = 742-7) 0.35 10*3/uL 0.33-0.92 EOS x10^3 (test code = 711-2) <0.03 0.03-0.39 L BASO x10^3 (test code = 704-7) <0.03 0.01-0.07 Lab Interpretation (test code = 47572-1) [facility]normal [facility] nCoV [id number] 14:43:00* Test Item Value Reference Range Interpretation Comme nts Coronavirus 2019 nCoV Bedside (test code = JCYYO28EQJFQ) Positive Negative A Critical Value reported toFirst Name: DIANE Last Name: Klaudia (DR. MEYERS OFFICE)RESULTS READ BACK AND VERIFIEDby [id number], on 04/01/21, @ 1435. UR HCG [id number] 14:17:00* Test Item Value Reference Range Interpretation Comme nts UR HCG QUAL (test code = HCGQLU) NEGATIVE NEGATIVE Notes Date/Time Note Provider Source 2021-04-01 14:02:00 [id number] [place] [address] PATIENT NAME: SYD MICHELLE ADMIT DATE: ACCOUNT NO: [id number] ROOM NO: AGE: 40 REPORT TYPE: eELECTROCARDIOGRAM SEX: F ADMITTING PHYSICIAN: Todd Meyers MD ATTENDING PHYSICIAN: Todd Meyers MD Order: [id number] Test Reason : SDS Test Date/Time Stamp: [...] ECGs available Confirmed by EDELMIRA STEVENS MD ([id number]) on 04/08/2021 8:25:42 AM Referred By: Todd Meyers Confirmed by:EDELMIRA STEVENS MD at 0825 PATIENT NAME: SYD MICHELLE [facility]"
[2025-05-11] MEDS ORDERED: ACETAMINOPHEN 500 MG TAB ONE (21:12)
[2025-05-11] MEDS ORDERED: ONDANSETRON 4 MG (ODT) TAB ONE (21:12)
[2025-05-11 21:46] LABS: Influenza A Ag Negative; Influenza B Ag Negative
[2025-05-11 21:47] LABS: SARS-CoV-2 Antigen Rapid Res Positive (Negative)
--- NOTE | 2025-05-11 22:12 | RAD REPORT ---
EXAMINATION: ONE VIEW CHEST XR CLINICAL INDICATION: Cough;Fever TECHNIQUE: Frontal chest projection is submitted. Examination is limited by patient positioning and t echnique. COMPARISON: No prior exam. FINDINGS: The lungs are well inflated and clear. The heart is upper limit of normal in size. No displaced fract ures identified. Moderate S-shaped scoliosis of the thoracic and lumbar spine. IMPRESSION: No acute intrathoracic abnormalities.
--- NOTE | 2025-05-11 22:50 | ER ---
Nurse's Notes [facility] Name: Maru Khoury Age: 44 yrs Sex: Female : 1980 Arrival Date: 05/11/2025 Time: 20:22 Bed 12 Private MD: Diagnosis: SARS-associated coronavirus as the cause of diseases classified elsewhere Presentation: 05/11 20:37 Chief complaint: Patient states: pt reports waking up feeling "achy" this AM, N/V, body kb4 aches. Coronavirus screen: Vaccine status: Patient reports being unvaccinated. At this time, unable to obtain information related to travel outside the [place] Client presents with at least one sign or symptom that may indicate coronavirus-19. Standard/surgical mask placed on the client. Ebola Screen: No symptoms or risks identified at this time. Initial Sepsis Screen: Does the patient meet any 2 criteria? Temp <36.0*C (96.8*F)) or > 38.3*C (100.9*F). HR > 90 bpm. Does the patient have a suspected source of infection? No. Patient's initial sepsis screen is negative. Risk Assessment: Do you want to hurt yourself or someone else? Patient reports no desire to harm self or others. Onset of symptoms was May 11, 2025. 20:37 Method Of Arrival: Ambulatory 4 20:37 Acuity: SB 3 kb4 Triage Assessment: 20:40 General: Appears distressed, uncomfortable, ill, Behavior is calm, cooperative. Pain: kb4 Denies pain. Respiratory: Airway is patent Respiratory effort is even, unlabored, Respiratory pattern is regular, symmetrical. 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 Flu vaccine is not up to date. - Infectious Disease History:: Denies. - Social history:: Smoking status: Patient denies any tobacco usage or history of. Patient uses alcohol, occasionally. Screenin:47 [facility] ED Fall Risk Assessment (Adult) History of falling in the last 3 months, me1 including since admission No falls in past 3 months (0 pts) Confusion or Disorientation No (0 pts) Intoxicated or Sedated No (0 pts) Impaired Gait No (0 pts) Mobility Assist Device Used No (0 pt) Altered Elimination No (0 pt) Score/Fall Risk Level 0 - 2 = Low Risk Maintained a safe environment, Provided non-skid footwear, Hourly rounding (assess needs \\T\\ fall precautionary measures) done. Abuse screen: Denies threats or abuse. Nutritional screening: No deficits noted. Tuberculosis screening: No symptoms or risk factors identified. Assessment: 20:47 General: Appears ill, well groomed, well developed, well nourished, Behavior is calm, me1 cooperative, appropriate for age, Reports pt reports waking up feeling "achy" this AM, N/V, body aches. Pain: Complains of pain in body aches Pain does not radiate. Pain at worst was 6 out of 10 on a pain scale. Quality of pain is described as aching, Pain began this morning Is continuous. Neuro: Level of Consciousness is awake, alert, obeys commands, Oriented to person, place, time, situation, Appropriate for age. Cardiovascular: Patient's skin is warm and dry. Respiratory: Airway is patent Respiratory effort is even, unlabored, Respiratory pattern is regular, symmetrical. GI: Reports nausea, vomiting, since this morning. : No signs and/or symptoms were reported regarding the genitourinary system. EENT: No signs and/or symptoms were reported regarding the EENT system. Derm: Skin is intact, is healthy with good turgor, Skin is normal. Musculoskeletal: Circulation, motion, and sensation intact. Range of motion: intact in all extremities, Reports body aches that started this morning. 23:17 Reassessment: Patient appears in no apparent distress at this time. Patient and/or vc1 family updated on plan of care and expected duration. Pain level reassessed. Patient is alert, oriented x 3, equal unlabored respirations, skin warm/dry/pink. Patient states feeling better. Patient states symptoms have improved. Vital Signs: 20:37 BP 152 / 90; Pulse 106; Resp 16; Temp 100.2; Pulse Ox 100% on R/A; Weight 61.23 kg; kb4 Height 4 ft. 11 in. ; 22:00 BP 134 / 74; Pulse 96; Resp 16; Pulse Ox 98% ; me1 23:17 BP 114 / 89; Pulse 99; Resp 18; Temp 99; Pulse Ox 99% ; vc1 20:37 Body Mass Index 27.27 (61.23 kg, 149.86 cm) kb4 ED Course: 20:25 Patient arrived in ED. im 20:33 Garo Mccartney PA-C is PHCP. cp 20:33 William Castro DO is Attending Physician. cp 20:40 Triage completed. kb4 20:40 Arm band placed on right wrist. kb4 20:46 Ursula Turk, KEAGAN is Primary Nurse. me1 20:47 Patient has correct armband on for positive identification. Bed in low position. Call me1 light in reach. Side rails up X2. Provided Education on: POC. Verbalized understanding.. Client placed on continuous cardiac and pulse oximetry monitoring. NIBP monitoring applied. Pulse ox on. NIBP on. 20:47 No provider procedures requiring assistance completed. me1 21:19 COVID swab sent to lab. Flu and/or RSV swab sent to lab. Strep swab sent to lab. me1 21:47 Notified Nurse Practitioner and/or Physician [employer] of a critical lab result(s), me1 positive for covid. Informed AMANUEL Man. 22:07 XRAY Chest (1 view) In Process Unspecified. EDMS 23:19 Patient did not have IV access during this emergency room visit. vc1 Administered Medications: 21:22 Drug: Acetaminophen PO 1000 mg PO once Route: PO; me1 21:37 Follow up: Response: No adverse reaction; Pain is decreased me1 21:22 Drug: Ondansetron PO 4 mg PO once Route: PO; me1 21:37 Follow up: Response: No adverse reaction; Nausea is decreased me1 Medication: 20:47 VIS not applicable for this client. me1 Outcome: 22:49 Discharge ordered by . cp 23:19 Discharged to home ambulatory, vc1 23:19 Condition: stable 23:19 Discharge instructions given to patient, Instructed on discharge instructions, follow up and referral plans. medication usage, Demonstrated understanding of instructions, follow-up care, medications, Prescriptions given X 3, 23:20 Patient left the ED. vc1 Signatures: Dispatcher [employer] EDMS Garo Mccartney PA-C PA-C cp Calcote, Vanessa RN RN vc1 Tara Hurt Michelle RN RN me1 Anitha Garza RN RN kb4 Corrections: (The following items were deleted from the chart) 20:47 20:37 Chief complaint: Patient states: pt reports waking up feeling "achy" this AM, me1 N/V, body aches kb4
--- NOTE | 2025-05-11 22:50 | EDPHYS ---
Physician Documentation [facility] Name: Maru Khoury Age: 44 yrs Sex: Female : 1980 Arrival Date: 05/11/2025 Time: 20:22 Bed 12 Private MD: ED Physician William Castro HPI: 05/11 21:15 This 44 yrs old Female presents to ER via Ambulatory with complaints of Flu cp Symptoms. 21:15 The patient or guardian reports cough, flu symptoms. Onset: The symptoms/episode cp began/occurred this morning. 21:15 Associated signs and symptoms: Pertinent positives: fever, sore throat, body aches. cp Severity of symptoms: in the emergency department the symptoms are unchanged despite home interventions. 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 Flu vaccine is not up to date. - Infectious Disease History:: Denies. - Social history:: Smoking status: Patient denies any tobacco usage or history of. Patient uses alcohol, occasionally. ROS: 21:20 Constitutional: Positive for body aches, fever, cp 21:20 Eyes: Negative for injury, pain, redness, and discharge, cp 21:20 ENT: Positive for sore throat, Negative for drainage from ear(s), ear pain, difficulty swallowing, difficulty handling secretions, 21:20 Cardiovascular: Negative for chest pain, palpitations, 21:20 Respiratory: Positive for cough, Negative for wheezing, 21:20 Abdomen/GI: Positive for nausea, Negative for diarrhea, constipation, 21:20 Neuro: Negative for altered mental status, 21:20 All other systems are negative, Exam: 21:25 Constitutional: The patient appears in no acute distress, alert, awake, cp non-diaphoretic, non-toxic, well developed, well nourished, 21:25 Head/Face: Normocephalic, atraumatic. cp 21:25 Eyes: Periorbital structures: appear normal, Conjunctiva: normal, no exudate, no injection, Sclera: no appreciated abnormality, Lids and lashes: appear normal, bilaterally, 21:25 ENT: External ear(s): are unremarkable, Ear canal(s): are normal, clear, TM's: dullness, bilaterally, Nose: is normal, Mouth: Lips: moist, Oral mucosa: moist, Posterior pharynx: Airway: no evidence of obstruction, patent, Tonsils: no enlargement, no exudate, Uvula: midline, erythema, that is mild, 21:25 Chest/axilla: Inspection: normal, 21:25 Cardiovascular: Rate: tachycardic, Rhythm: regular, 21:25 Respiratory: the patient does not display signs of respiratory distress, Respirations: normal, no use of accessory muscles, no retractions, labored breathing, is not present, Breath sounds: bronchial sounds, that are mild, are heard diffusely, 21:25 Abdomen/GI: Inspection: abdomen appears normal, Palpation: abdomen is soft and non-tender, in all quadrants, Vital Signs: 20:37 BP 152 / 90; Pulse 106; Resp 16; Temp 100.2; Pulse Ox 100% on R/A; Weight 61.23 kg; kb4 Height 4 ft. 11 in. ; 22:00 BP 134 / 74; Pulse 96; Resp 16; Pulse Ox 98% ; me1 23:17 BP 114 / 89; Pulse 99; Resp 18; Temp 99; Pulse Ox 99% ; vc1 20:37 Body Mass Index 27.27 (61.23 kg, 149.86 cm) kb4 MDM: 20:54 Medical Screening Exam initiated cp 22:49 Data reviewed: vital signs, nurses notes, lab test result(s), radiologic studies, plain cp films. 22:49 Differential diagnosis: bronchitis, flu, URI, pneumonia. I considered the following cp discharge prescriptions or medication management in the emergency department Medications were administered in the Emergency Department. See MAR. Counseling: I had a detailed discussion with the patient and/or guardian regarding the historical points, exam findings, and any diagnostic results supporting the discharge/admit diagnosis, lab results, radiology results, to return to the emergency department if symptoms worsen or persist or if there are any questions or concerns that arise at home. Response to treatment: the patient's symptoms have mildly improved after treatment, and as a result, I will discharge patient. 05/11 21:04 Order name: COVID-19 Ag + Flu A+B Ag; Complete Time: 22:18 cp 05/11 22:19 Interpretation: Reviewed. cp 05/11 21:04 Order name: Group A Streptococcus Rapid; Complete Time: 22:18 cp 05/11 21:43 Order name: Throat Culture EDMS 05/11 21:07 Order name: XRAY Chest (1 view); Complete Time: 22:18 cp Administered Medications: 21:22 Drug: Acetaminophen PO 1000 mg PO once Route: PO; me1 21:37 Follow up: Response: No adverse reaction; Pain is decreased me1 21:22 Drug: Ondansetron PO 4 mg PO once Route: PO; me1 21:37 Follow up: Response: No adverse reaction; Nausea is decreased me1 Disposition Summary: 05/11/25 22:49 Discharge Ordered Notes: Location: Home cp Problem: new cp Symptoms: have improved cp Condition: Stable cp Diagnosis - SARS-associated coronavirus as the cause of diseases classified elsewhere cp Followup: cp - With: Private Physician - When: 2 - 3 days - Reason: Worsening of condition Discharge Instructions: - Discharge Summary Sheet cp - COVID-19 cp - How to Protect Yourself and Others - [facility] (10/16/2021) cp - 10 Things You Can Do to Manage Your COVID-19 Symptoms at Home - [facility] (03/06/2021) cp - COVID-19: Quarantine and Isolation - [facility] (11/18/2021) cp - COVID-19: What to Do If You Are Sick - [facility] (11/10/2021) cp Forms: - Medication Reconciliation Form cp - Antibiotic Education cp - Prescription Opioid Use cp - Patient Portal Instructions cp - Leadership Thank You Letter cp Prescriptions: - Bromfed DM 2-30-10 mg/5 mL Oral syrup - administer 10 milliliter ORAL route every 8 hours as needed for cold symptoms; cp 180 milliliter; Refills: 0, Product Selection Permitted - Paxlovid 300 mg (150 mg x 2)-100 mg Oral Tablet, Dose Pack - take 1 dose pack ORAL route as directed on dose pack take TWO 150 mg tablets of cp nirmatrelvir with ONE 100 mg tablet of ritonavir twice daily for 5 days; 30 tablet; Refills: 0, Product Selection Permitted - Zofran 4 mg Oral Tablet - take 1 tablet ORAL route every 12 hours As needed; 20 tablet; Refills: 0, cp Product Selection Permitted Addendum: 05/13/2025 07:17 Co-signature as Attending Physician, William AGUILLON reviewed the patient's care t t7 provided by the Advanced Practice Provider and agree with the diagnosis and treatment plan. Signatures: Dispatcher [employer] EDKS Garo Mccartney, PA-Angel PA-Ursula George cp, RN RN me1 Anitha Garza RN RN kb4 William Castro DO DO tt7
[2025-05-11 23:28] VITALS: BP 114/89; TEMP 99; O2SAT 99
== END 2025-05-11 23:20 | disposition home or self-care (01) ==
LOC: ER 20:22
DX: U07.1 COVID-19 (principal); B97.21 SARS-associated coronavirus as the cause of diseases classified elsewhere; I10 Essential (primary) hypertension; K21.9 Gastro-esophageal reflux disease without esophagitis; Z88.8 Allergy status to other drugs, medicaments and biological substances
CPT/HCPCS: 87070; 36415; 71045; 99284; 87428; Q0162